=== PATIENT | female | born 1950 | race Caucasian/White ===

== ENCOUNTER 2024-04-29 02:49 | Observation (INO) ==
--- NOTE | 2024-04-29 03:10 | Emergency Department Note ---
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 Pt. states she has lower abdominal pain. No diarrhea or constipation. LBM was about 2pm and normal. She did have similar symptoms about a month ago which lasted only a short time and resolved on their own. No dysuria, urinary frequency, urinary hesitancy, hematuria. No chest pain or dyspnea. No fever. She has had some chills. No blood in the vomit. History provided by: Patient REVIEW OF SYSTEMS: A 10 system review of systems was performed with positives and pertinent negatives listed in the history of present illness. All other systems were reviewed and are negative. ALLERGIES: NKDA PHYSICAL EXAM: VITALS: Vitals are noted on the nurse's note and reviewed by myself. GENERAL: This is a 74 year old female, in no acute distress, nondiaphoretic, well-developed well-nourished. SKIN: The skin was without rashes, erythema, edema, or bruising. There is no tenting of the skin. Capillary refill less than 2 seconds. HEAD: Normocephalic atraumatic. EARS: External auditory canals clear, tympanic membranes pearly herbert without erythema or effusion bilaterally. No hemotympanum. Negative montez sign EYES: Pupils equal round and reactive to light and accommodation. Conjunctivae without injection, sclerae without icterus. Extraocular movements intact. NOSE: Patent, turbinates without inflammation or discharge. No sinus tenderness. MOUTH: Mucous membranes moist. Tonsils are not enlarged. Pharynx without erythema or exudate. Uvula midline. Airway patent. Tongue does not deviate. NECK: Supple without nuchal rigidity. No lymphadenopathy. Cervical spine is nontender. No JVD. HEART: Regular rate and rhythm without murmurs gallops or rubs. LUNGS: Clear to auscultation bilaterally without wheezes, rales or rhonchi. No retractions or accessory muscle use. ABDOMEN: Positive bowel sounds x 4. Suprapubic tenderness to palpation. Abdomen otherwise soft, nontender, without masses or organomegaly. Kat sign negative. No guarding or rebound tenderness. No CVA tenderness bilaterally. MUSCULOSKELETAL: No muscle atrophy, erythema, or edema noted. Full range of motion without joint tenderness in all extremities. No tenderness to palpation. Normal gait. Strength 5/5 throughout. NEURO: Patient was alert and oriented to person place and time. No focal neurological deficits. An order was placed for continuous quality assurance monitor body. The monitor showed a normal sinus rhythm at a ventricular rate of 93 bpm, per my interpretation. Imaging as interpreted by myself and the radiologist revealed findings consistent with small bowel obstruction, with radiologist interpretation as above. I agree with the radiologist's findings as based upon my independent interpretation. EMERGENCY DEPARTMENT COURSE: The patient was seen and evaluated as above. The patient presents to the emergency department for abdominal pain, nausea, vomiting. Symptoms began approximately 5 to 6 hours prior to arrival. Patient has had several episodes of vomiting. She complains of lower abdominal pain. No recent diarrhea or constipation. Last bowel movement was about 2 PM. Patient is afebrile. No history of similar symptoms. No history of GI abnormalities. IV access was obtained, labs are drawn. Patient hydrated with IV fluids. She was medicated with Zofran and acetaminophen. Labs reviewed. Mild leukocytosis of 14,000. No anemia or thrombocytopenia. Renal, hepatic function and electrolytes without significant abnormality. Lipase 18. Urinalysis negative for blood. Is positive for 2+ bacteria, 2+ leukocyte esterase, but does appear to be contaminated specimen. CT imaging was completed and reviewed by myself radiologist as noted. Radiologist report initially read and somewhat unclear. Did contact Dr. Solis regarding concern for bowel obstruction. He notes that the findings on the imaging are consistent with small bowel obstruction. I discussed findings with the patient at bedside. She was reassessed. She does improvement in her pain and nausea. She has not had any further episodes of vomiting. I did recommend inpatient care, as the patient does not have any history of small bowel obstructions. The patient was agreeable. I discussed the case with Dr. Evans, Sariah Bailey hospitalist physician. She did agree to evaluate patient for admission. Please see hospitalist dictation regarding ongoing management and care of this patient. Case was discussed with the attending physician. I attest that I have personally reviewed the patient medication list. I attest that I have reviewed the patient's blood pressure and it was found to be elevated. Suspect to be situational. Referred to PCP for further management. GCS: 15 In the evaluation and treatment of this patient the following differential diagnoses were entertained: appendicitis, diverticulitis, obstruction, inflammatory bowel disease, renal colic, PUD, biliary pathology, pancreatitis, mesenteric ischemia, aortic pathology, infections, genitourinary, UTI, perforated viscus, as well as others were entertained. The chart was completed utilizing [employer] Speech voice recognition software. Grammatical errors, random word insertions, pronoun errors, and incomplete sentences are an occasional consequence of this system due to software limitations, ambient noise, and hardware issues. Any formal questions or concerns about the content, text, or information contained within the body of this dictation should be directly addressed to the provider for clarification. Past Med/Surg History Problem List (Updated 04/29/24 @ 07:23 by Rachel Montiel PA-C) Nausea & vomiting (Acute) Abdominal pain (Acute) Small bowel obstruction (Acute) COVID-19 History of squamous cell carcinoma of skin Vitamin D deficiency Medical History Cystocele Hypertension Allergic rhinitis Asthma Surgical History H/O hysterectomy with unilateral oophorectomy still w/ L ovary; d/t DUB Hx of cholecystectomy Family History Father Myocardial infarction, Onset Age: 72 Coronary heart disease Diabetes Mother No problems noted. 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 Beliefs That Will Affect Care: None marital status: / marital status details: lost spouse (2019) Current Living Situation: Alone current occupational status: retired How many Children do You have: 3 Feels Safe at Home: Yes Childhood Exposure to Second-Hand Smoke: Yes Diet: regular Diet Comment: Regular caffeine: Yes (coffee) during the past year weight has: remained stable Dental Care, Regularly: Yes Physical Activity Frequency: Daily Seatbelt Use: always Sunscreen Use: No Assistive Devices: Glasses Allergies Allergies Allergy/AdvReac Type Severity Reaction Status Date / Time No Known Drug Allergies Allergy Unknown Unverified 12/20/23 15:07 weed pollen AdvReac Unknown Verified 12/20/23 15:07 Home Meds Home Medications Medication Instructions Recorded Confirmed fexofenadine 180 mg tablet 180 mg PO DAILY 02/18/22 04/29/24 multivitamin 1 tab PO QAM 12/03/22 04/29/24 cholecalciferol (vitamin D3) 50 6,000 unit PO DAILY 06/07/23 04/29/24 mcg (2,000 unit) capsule clobetasol 0.05 % scalp solution 1 applic topical DAILY PRN Rash 12/16/23 04/29/24 ketoconazole 2 % shampoo 1 applic topical .2 times per week 12/16/23 04/29/24 PRN Rash fluocinolone acetonide oil 0.01 % drp otic (ear) 12/20/23 12/20/23 ear drops Previous Rx's Medication Instructions Recorded fluticasone 250 mcg-salmeterol 50 1 inh inhalation BID #60 ea 04/28/23 mcg/dose blistr powdr for inhalation (Wixela Inhub) amlodipine 5 mg tablet 5 mg PO DAILY #90 tabs 10/25/23 amoxicillin 875 mg-potassium 1 tab PO BID 10 days #20 tabs 12/16/23 clavulanate 125 mg tablet Results & Data (ED) Vital Signs Vital Signs - 24 hr 04/29/24 02:53 04/29/24 03:44 04/29/24 03:45 Temperature 36.7 C Temperature Source Temporal Artery Scan Pulse Rate 93 H 78 79 Pulse Rate [Apical] Pulse Rate from SpO2 Sensor 79 Respiratory Rate 18 14 Respiratory Effort / Characteristics Non-Labored Respiratory Depth Normal Respiratory Pattern Regular Blood Pressure 168/96 H 137/75 Blood Pressure [Right Arm] Blood Pressure Mean 120 95 Blood Pressure Mean [Right Arm] Pulse Oximetry 97 90 Oxygen Delivery Method Room Air Sepsis Recent Fever Within 48 Hours No Sepsis New/Unexplained Change in Mental Status N/A Sepsis Action Taken by Nursing No Action Required 04/29/24 04:30 04/29/24 05:24 04/29/24 06:00 Temperature Temperature Source Pulse Rate 69 67 72 Pulse Rate [Apical] Pulse Rate from SpO2 Sensor 63 69 Respiratory Rate 15 15 16 Respiratory Effort / Characteristics Respiratory Depth Respiratory Pattern Blood Pressure 135/73 142/79 H 143/78 H Blood Pressure [Right Arm] Blood Pressure Mean 93 100 97 Blood Pressure Mean [Right Arm] Pulse Oximetry 98 98 97 Oxygen Delivery Method Sepsis Recent Fever Within 48 Hours Sepsis New/Unexplained Change in Mental Status Sepsis Action Taken by Nursing 04/29/24 07:06 Temperature Temperature Source Pulse Rate Pulse Rate [Apical] 80 Pulse Rate from SpO2 Sensor Respiratory Rate 16 Respiratory Effort / Characteristics Respiratory Depth Normal Respiratory Pattern Blood Pressure Blood Pressure [Right Arm] 141/82 H Blood Pressure Mean Blood Pressure Mean [Right Arm] 101 Pulse Oximetry 99 Oxygen Delivery Method Room Air Sepsis Recent Fever Within 48 Hours Sepsis New/Unexplained Change in Mental Status Sepsis Action Taken by Nursing Laboratory Data 04/29/24 03:08 04/29/24 03:08 Lab Results 04/29/24 04/29/24 Range/Units 03:08 03:23 WBC 14.31 H (4.8-10.8) K/ul RBC 5.37 (4.20-5.40) M/uL Hgb 14.5 (12.0-16.0) g/dl POC Hgb 15.0 (12.0-16.0) g/dl Hct 44.1 (37.0-47.0) % POC Hct 44 (37-47) % MCV 82.1 (80.0-100.0) fL MCH 27.0 (25.0-34.0) pg MCHC 32.9 (32.0-36.0) g/dL RDW Std Deviation 42.3 (36.4-46.3) fL RDW Coeff of Lorene 14.3 (11.5-14.5) % Plt Count 424 H (130-400) K/uL MPV 10.5 (9.4-12.4) fL Immature Gran % (Auto) 0.3 % Neut % (Auto) 82.9 % Lymph % (Auto) 12.5 % Upson % (Auto) 3.7 % Eos % (Auto) 0.1 % Baso % (Auto) 0.5 % Neut # (Auto) 11.87 H (1.40-6.50) K/uL Lymph # (Auto) 1.79 (1.20-3.40) K/uL Upson # (Auto) 0.53 (0.11-0.59) K/uL Eos # (Auto) 0.01 (0.00-0.50) K/uL Baso # (Auto) 0.07 (0.00-0.20) K/uL Immature Gran # (Auto) 0.04 (0.01-0.20) K/uL PT 11.1 (9.0-12.0) Seconds INR 1.0 (0.9-1.1) POC Sodium 139 (135-144) mmol/L Sodium 136 (136-145) mmol/L POC Potassium 3.8 (3.3-5.0) mmol/L Potassium 3.9 (3.5-5.1) mmol/L POC Chloride 104 (101-112) mmol/L Chloride 103 (98-107) mmol/L Carbon Dioxide 23 (21-32) mmol/L POC Total CO2 23 L (24-31) mmol/L Anion Gap 10 (3-11) POC Anion Gap 17.0 (16-25) mmol/L POC BUN 17 (7-18) mg/dl BUN 17 (6-23) mg/dl Creatinine 0.68 (0.6-1.2) mg/dl POC Creatinine 0.7 (0.6-1.3) mg/dl Est Cr Clr Drug Dosing 85.3 ml/min eGFR 92.48 BUN/Creatinine Ratio 25.0 H (10-20) Glucose 165 H (70-99(Fasting)) mg/dl POC Glucose (other) 169 H (70-99) mg/dl Calcium 10.1 (8.6-10.3) mg/dl POC Ioniz Calcium Amisha 1.13 (1.12-1.32) mmol/l Total Bilirubin 0.7 (0.2-1.0) mg/dl AST 20 (13-39) U/L ALT 14 (7-52) U/L Alkaline Phosphatase 97 (34-104) U/L Troponin I High Sens 4.8 (0-14) pg/ml Total Protein 8.1 (6.0-8.3) gm/dl Albumin 4.8 (3.4-5.0) gm/dl Globulin 3.3 (2.5-4.0) gm/dl Albumin/Globulin Ratio 1.5 (0.9-2) Lipase 18 (11-82) U/L Urine Color Yellow Urine Appearance Cloudy A (Clear) Urine pH 7.5 (4.5-7.5) Ur Specific [place] 1.021 (1.000-1.030) Urine Protein Trace H (Negative) Urine Glucose (UA) Negative (Negative) Urine Ketones 1+ H (Negative) Urine Blood Negative (Negative) Urine Nitrite Negative (Negative) Urine Bilirubin Negative (Negative) Urine Urobilinogen Negative (Negative) Ur Leukocyte Esterase 2+ H (Negative) Urine WBC (Auto) 11-20 H (0-5) /hpf Urine RBC (Auto) 0-2 (0-2) /hpf U Hyaline Cast (Auto) 0-2 (0-2) /lpf U Epithel Cells (Auto) 11-20 H (0-2) /hpf Urine Bacteria (Auto) 2+ H (None Seen) Administered Medications Discontinued Medications Sodium Chloride (Nss) 1,000 mls @ 999 mls/hr IV .Q1H1M STA Stop: 04/29/24 04:06 Last Infusion: 04/29/24 04:22 Dose: Infused Documented By: Admin: 04/29/24 03:21 Dose: 999 mls/hr Documented By: SRINIVAS Acetaminophen (Ofirmev) 1,000 mg in 100 mls @ 400 mls/hr IV NOW STA Stop: 04/29/24 03:20 Last Infusion: 04/29/24 03:44 Dose: Infused Documented By: Admin: 04/29/24 03:21 Dose: 400 mls/hr Documented By: SRINIVAS Ioversol (Optiray 320 100ml) 94 ml IV ONCE ONE Stop: 04/29/24 03:42 Last Admin: 04/29/24 03:32 Dose: 94 ml Documented By: BRETT Ondansetron HCl (Ondansetron Inj 2 Mg/Ml 2 Ml Vial) 4 mg IV NOW STA Stop: 04/29/24 03:07 Last Admin: 04/29/24 03:21 Dose: 4 mg Documented By: SRINIVAS Ondansetron HCl (Ondansetron Inj 2 Mg/Ml 2 Ml Vial) 4 mg IV NOW STA Stop: 04/29/24 05:59 Last Admin: 04/29/24 06:05 Dose: 4 mg Documented By: SRINIVAS Imaging Data Radiologist's Impression: Abdomen/Pelvis CT 04/29/24 03:06 EXAM: CT abd pelvis IV con only CLINICAL HISTORY: lower abd pain , nausea , vomiting , TECHNIQUE: CT of the abdomen and pelvis was performed with contrast, with the following protocol: axial images with, and reconstructed coronal and sagittal images. 94 ml optiray 320 intravenous contrast was administered. One of the following dose reduction techniques was utilized for this exam: Automated exposure control, adjustment of the mA and/or kV according to patient size, and use of iterative reconstruction. DLP 1379.38 COMPARISON: NONE. FINDINGS: Abdomen: Liver: Normal in size, shape, and density. No focal lesions, cysts, or masses were identified. Gallbladder and Biliary System: The gallbladder is surgically removed. The intrahepatic biliary ducts are moderately dilated, the CBD also dilated measures 1.3cm, and no intraluminal calcification or mass was noted. Pancreas: Pancreatic head, body, and tail are visualized and appear normal in size and density. No pancreatic masses or calcifications were noted. The pancreatic duct is not dilated. Spleen: Normal in size, shape, and density. No splenic lesions or masses were identified. Kidneys and Adrenal Glands: Both kidneys are normal in size, shape, and position. Cortical thickness is within normal limits. No renal calculi or hydronephrosis. Adrenal glands are unremarkable with no evidence of masses or hyperplasia. Pelvis: Urinary Bladder: Normal in contour and wall thickness. No intraluminal lesions were identified. Uterus: Status of post hysterectomy. Ovaries: Not-well visualized but no gross abnormalities were noted. Cervix: There is a circular prosthesis around it. Peritoneal and Retroperitoneal Structures: Mild trace of free fluid in the pelvis. No lymphadenopathy was noted. Bowel: Dilation of continuous loops of the central small bowels with kinking of the mesenteric vessels, there is a transitional point in distal ileium where it showed enhancing wall thickening and luminal narrowing as well as engorged mesneteric vessels(comb sign) and few mesenteric adenitides, could be inflammatory bowel disease, likely active Crhons, clinical correlation and follow UP are needed. Multiple uncomplicated left colon diverticulosis was noted. Bones and Soft Tissues: Pelvic bones and soft tissues are unremarkable. No fractures or abnormal masses were identified. IMPRESSION: 1. Dilation of continuous loops of the central small bowels with kinking of the mesenteric vessels, there is a transitional point in distal ileium where it showed enhancing wall thickening and luminal narrowing as well as engorged mesneteric vessels(comb sign) and few mesenteric adenitides, could be inflammatory bowel disease, likely active Crhons, clinical correlation and follow UP are needed. 2. Multiple uncomplicated left colon diverticulosis was noted. 3. The intrahepatic biliary ducts are moderately dilated, the CBD also dilated measures 1.3cm, and no intraluminal calcification or mass was noted. further evaluation with MRCP is suggested if clinically warranted. 4. Status of post cholecystectomy and hysterectomy. Electronically signed by Johny Solis 04-29-2024 05:08 AM Discharge Plan Visit Data Chief Complaint: Abdominal Pain Stated Complaint: abd pain, vomiting ED Provider: José Miguel Fernandez ED Midlevel Provider: Rachel Montiel Discharge Problem: Small bowel obstruction, Abdominal pain, Nausea & vomiting Patient Disposition: Admitted As Inpatient Forms Stand Alone Forms: [facility], Important Visit Information Prescriptions Prescriptions: No Action fluticasone propion-salmeterol [Wixela Inhub] 250-50 mcg/dose blister with device 1 inh inhalation BID Qty: 60 5RF amlodipine 5 mg tablet 5 mg PO DAILY Qty: 90 3RF multivitamin Tablet 1 tab PO QAM Rx Instructions: with probiotic (Ollys brand) fexofenadine 180 mg tablet 180 mg PO DAILY Fluzone HighDose Quad 23-24 PF 240 mcg/0.7 mL syringe 0.7 ml IM ONCE Qty: 0.7 0RF cholecalciferol (vitamin D3) 50 mcg (2,000 unit) capsule 6,000 unit PO DAILY clobetasol 0.05 % solution 1 applic topical DAILY PRN (Reason: Rash) ketoconazole 2 % shampoo 1 applic topical .2 times per week PRN (Reason: Rash) fluocinolone acetonide oil 0.01 % drops otic (ear) amoxicillin-pot clavulanate 875-125 mg tablet 1 tab PO BID 10 Days Qty: 20 0RF Referrals Referrals: Cristina Chilel DO [Primary Care Provider] -
[2024-04-29 03:20] LABS: Basophils # (auto) 0.07 K/uL (0.00-0.20); Basophils % (auto) 0.5 %; Eosinophils # (auto) 0.01 K/uL (0.00-0.50); Eosinophils % (auto) 0.1 %; Hematocrit (blood only) 44.1 % (37.0-47.0); Hemoglobin 14.5 g/dl (12.0-16.0); Immature Granulocytes # (auto) 0.04 K/uL (0.01-0.20); Immature Granulocytes % (auto) 0.3 %; Lymphocytes # (auto) 1.79 K/uL (1.20-3.40); Lymphocytes % (auto) 12.5 %; Mean Corpuscular Hgb Conc 32.9 g/dL (32.0-36.0); Mean Corpuscular Volume 82.1 fL (80.0-100.0); Mean Platelet Volume 10.5 fL (9.4-12.4); Monocytes # (auto) 0.53 K/uL (0.11-0.59); Monocytes % (auto) 3.7 %; Neutrophils # (auto) 11.87 K/uL (1.40-6.50); Neutrophils % (auto) 82.9 %; Platelet Count 424 K/uL (130-400); RDW Coefficient of Variation 14.3 % (11.5-14.5); RDW Standard Deviation 42.3 fL (36.4-46.3); Red Blood Count 5.37 M/uL (4.20-5.40); White Blood Count 14.31 K/ul (4.8-10.8)
[2024-04-29] MEDS: ACETAMINOPHEN 1,000 MG/100 ML VIAL IV STA (03:21)
[2024-04-29] MEDS: ONDANSETRON INJ 2 MG/ML 2 ML VIAL IV STA ×2 (03:21→06:05)
[2024-04-29] MEDS: SODIUM CHLORIDE 0.9% 1,000 ML IV STA (03:21)
[2024-04-29 03:24] LABS: Appearance Urine Cloudy (Clear); Bacteria Urine Automated 2+ (None Seen); Bilirubin Urine Negative (Negative); Blood Urine Negative (Negative); Cast Urine Automated 0-2 /lpf (0-2); Color Urine Yellow; Glucose Urine UA Negative (Negative); Ketones Urine 1+ (Negative); Leukocyte Esterase Urine 2+ (Negative); Nitrite Urine Negative (Negative); Protein Urine Trace (Negative); RBC Urine Automated 0-2 /hpf (0-2); Specific Gravity Urine 1.021 (1.000-1.030); Urobilinogen Urine Negative (Negative); pH Urine 7.5 (4.5-7.5)
[2024-04-29] MEDS: OPTIRAY 320 100ml IV ONE (03:32)
[2024-04-29 03:39] LABS: iSTAT Creatinine 0.7 mg/dl (0.6-1.3); iSTAT Ionized Calcium 1.13 mmol/l (1.12-1.32); iSTAT Potassium 3.8 mmol/L (3.3-5.0)
[2024-04-29 03:39] LABS: Albumin Globulin Ratio 1.5 (0.9-2); Albumin Level 4.8 gm/dl (3.4-5.0); Bilirubin,Total 0.7 mg/dl (0.2-1.0); Calcium 10.1 mg/dl (8.6-10.3); Creatinine Clr Calc Pharmacy 85.3 ml/min; Globulin 3.3 gm/dl (2.5-4.0); Potassium 3.9 mmol/L (3.5-5.1); Total Protein 8.1 gm/dl (6.0-8.3)
[2024-04-29 03:46] LABS: Troponin I High Sensitivity 4.8 pg/ml (0-14)
[2024-04-29 04:00] LABS: Prothrombin Time 11.1 Seconds (9.0-12.0)
--- NOTE | 2024-04-29 05:09 | CT Scan Report ---
EXAM: CT abd pelvis IV con only CLINICAL HISTORY: lower abd pain , nausea , vomiting , TECHNIQUE: CT of the abdomen and pelvis was performed with contrast, with the following protocol: axial images with, and reconstructed coronal and sagittal images. 94 ml optiray 320 intravenous contrast was administered. One of the following dose reduction techniques was utilized for this exam: Automated exposure control, adjustment of the mA and/or kV according to patient size, and use of iterative reconstruction. DLP 1379.38 COMPARISON: NONE. FINDINGS: Abdomen: Liver: Normal in size, shape, and density. No focal lesions, cysts, or masses were identified. Gallbladder and Biliary System: The gallbladder is surgically removed. The intrahepatic biliary ducts are moderately dilated, the CBD also dilated measures 1.3cm, and no intraluminal calcification or mass was noted. Pancreas: Pancreatic head, body, and tail are visualized and appear normal in size and density. No pancreatic masses or calcifications were noted. The pancreatic duct is not dilated. Spleen: Normal in size, shape, and density. No splenic lesions or masses were identified. Kidneys and Adrenal Glands: Both kidneys are normal in size, shape, and position. Cortical thickness is within normal limits. No renal calculi or hydronephrosis. Adrenal glands are unremarkable with no evidence of masses or hyperplasia. Pelvis: Urinary Bladder: Normal in contour and wall thickness. No intraluminal lesions were identified. Uterus: Status of post hysterectomy. Ovaries: Not-well visualized but no gross abnormalities were noted. Cervix: There is a circular prosthesis around it. Peritoneal and Retroperitoneal Structures: Mild trace of free fluid in the pelvis. No lymphadenopathy was noted. Bowel: Dilation of continuous loops of the central small bowels with kinking of the mesenteric vessels, there is a transitional point in distal ileium where it showed enhancing wall thickening and luminal narrowing as well as engorged mesneteric vessels(comb sign) and few mesenteric adenitides, could be inflammatory bowel disease, likely active Crhons, clinical correlation and follow UP are needed. Multiple uncomplicated left colon diverticulosis was noted. Bones and Soft Tissues: Pelvic bones and soft tissues are unremarkable. No fractures or abnormal masses were identified. IMPRESSION: 1. Dilation of continuous loops of the central small bowels with kinking of the mesenteric vessels, there is a transitional point in distal ileium where it showed enhancing wall thickening and luminal narrowing as well as engorged mesneteric vessels(comb sign) and few mesenteric adenitides, could be inflammatory bowel disease, likely active Crhons, clinical correlation and follow UP are needed. 2. Multiple uncomplicated left colon diverticulosis was noted. 3. The intrahepatic biliary ducts are moderately dilated, the CBD also dilated measures 1.3cm, and no intraluminal calcification or mass was noted. further evaluation with MRCP is suggested if clinically warranted. 4. Status of post cholecystectomy and hysterectomy. Electronically signed by Johny Solis 04-29-2024 05:08 AM
--- NOTE | 2024-04-29 05:16 | Emergency Department Note ---
ED Visit Note I was consulted by the Advanced Practice Provider. I personally made or approved the management plan for the patient. I performed a substantive portion of the visit. This includes the aspects of: MDM. .
--- NOTE | 2024-04-29 05:59 | History & Physical Report ---
Date of Service April 29, 2024 Assessment & Plan (1) Small bowel obstruction: Plan: 74-year-old female with history of cholecystectomy and hysterectomy presenting with 1 day of severe lower abdominal pain, nausea and multiple episodes of nonbloody/nonbilious vomiting. Patient afebrile, hemodynamically stable. Does have leukocytosis with WBC = 14.31 and elevated platelets = 424. CT as above with suggestion of small bowel obstruction. Patient feels slightly improved after receiving IV Zofran. No flatus. nausea is somewhat improved as is pain. Will hold off on NG tube placement for now Admit to medical Maintain n.p.o. status and aspiration precautions Normal saline at 80 mL/h Zofran as needed for nausea Morphine as needed for pain General Surgery consultation appreciated (2) Hypertension: Plan: chronic. Stable. Blood pressure acceptable presently 137/75 Continue amlodipine 5 mg p.o. daily Continue to monitor Plan Chronic medical conditions Asthmastable, no cough, shortness of breath or wheeze Continue Advair or formulary equivalent F/E/N - Normal saline at 80 mL an hour x 2L, electrolytes within normal limits, n.p.o. for now ProphylaxisSCDs to bilateral lower extremities codefull per discussion with patient Dispositionadmit to medical floor management for small bowel obstruction History of Present Illness Chief Complaint: abdominal pain Primary Care Provider: Cristina Chilel DO Florence Marilee is a 74yo female with HTN and Asthma presenting with abdominal pain. Patient developed fairly severe lower abdominal pain approximately 6 h ours ago. She has been having nausea and non-bloody/non-bilious vomiting as well. Some abdominal distention. Patient also endorses some subjective fevers and chills but denies chest pain, cough, SOB, diarrhea or urinary symptoms. Last BM yesterday - two normal BMs. No flatus now. In the ER she is afebrile, HD stable, NAD ER Course: Zofran Tylenol Normal saline x 1 L Allergies Allergy/AdvReac Type Severity Reaction Status Date / Time No Known Drug Allergies Allergy Unknown Unverified 12/20/23 15:07 weed pollen AdvReac Unknown Verified 12/20/23 15:07 Home Medications Medication Instructions Recorded Confirmed Type fexofenadine 180 mg tablet 180 mg PO DAILY 02/18/22 04/29/24 History multivitamin 1 tab PO QAM 12/03/22 04/29/24 History fluticasone 250 mcg-salmeterol 50 1 inh inhalation BID #60 ea 04/28/23 04/29/24 Rx mcg/dose blistr powdr for inhalation (Wixela Inhub) cholecalciferol (vitamin D3) 50 6,000 unit PO DAILY 06/07/23 04/29/24 History mcg (2,000 unit) capsule amlodipine 5 mg tablet 5 mg PO DAILY #90 tabs 10/25/23 04/29/24 Rx amoxicillin 875 mg-potassium 1 tab PO BID 10 days #20 tabs 12/16/23 12/16/23 Rx clavulanate 125 mg tablet clobetasol 0.05 % scalp solution 1 applic topical DAILY PRN Rash 12/16/23 04/29/24 History ketoconazole 2 % shampoo 1 applic topical .2 times per week 12/16/23 04/29/24 History PRN Rash fluocinolone acetonide oil 0.01 % drp otic (ear) 12/20/23 12/20/23 History ear drops Past Med/Surg History Problem List (Updated 04/29/24 @ 06:14 by Kaylene Evans DO) Small bowel obstruction COVID-19 History of squamous cell carcinoma of skin Vitamin D deficiency Medical History Cystocele Hypertension Allergic rhinitis Asthma Surgical History H/O hysterectomy with unilateral oophorectomy still w/ L ovary; d/t DUB Hx of cholecystectomy Family History Father Myocardial infarction, Onset Age: 72 Coronary heart disease Diabetes Mother No problems noted. Denies family history of Ovarian cancer Prostate cancer Breast cancer Colorectal cancer Social History Smoking Status: Never smoker Second Hand Exposure: Yes; Do You Dip or Chew Tobacco: No; Hx Alcohol Use: No Hx Substance Use: No Preferred Language: Bermudian Communication Ability: Effective Visual Impairment: No Limitations Hearing Ability: Normal Mail Officer Required: No Beliefs That Will Affect Care: None marital status: / marital status details: lost spouse (2019) Current Living Situation: Alone current occupational status: retired How many Children do You have: 3 Feels Safe at Home: Yes Childhood Exposure to Second-Hand Smoke: Yes Diet: regular Diet Comment: Regular caffeine: Yes (coffee) during the past year weight has: remained stable Dental Care, Regularly: Yes Physical Activity Frequency: Daily Seatbelt Use: always Sunscreen Use: No Assistive Devices: Glasses Review of Systems Review of Systems: All systems reviewed & are unremarkable except as noted in HPI & below Physical Exam Physical Exam: General: patient Anxious in appearance, no acute distress Skin: warm, dry, intact, no rashes or lesions HEENT: NC/AT, PERRL, EOMI, anicteric sclera, conjunctiva without injection, external ear normal to inspection and nontender, nares patent, moist mucus membranes, dentition intact, no oropharyngeal lesions, neck supple, trachea midline, no LAD, no thyromegaly, no JVD Heart: +S1/S2, regular, no m/r/g Lungs: equal air entry bilaterally, no rales/rhonchi/wheezes Abd: Diminished bowel sounds, abdomen mildly distended, tympanic to percussion, tender in the lower abdomen without rebound/guarding or peritoneal signs. No upper abdominal pain. No right upper quadrant tenderness. Ext: warm, 2+ pulses in UE/LE bilaterally, no clubbing/cyanosis or edema Neuro: nonfocal, patient AA&O x 4, speech intact, no facial droop, moving all extremities on command with equal strength 5/5 Results & Data Results & Data Vital Signs (Past 12 Hours) Vital Signs Temp Pulse Resp BP Pulse Ox O2 Del Method 04/29/24 03:45 79 14 137/75 90 04/29/24 03:44 78 04/29/24 02:53 36.7 C 93 H 18 168/96 H 97 Room Air Laboratory Results Laboratory Results WBC 14.31 K/ul (4.8-10.8) H 04/29/24 03:08 RBC 5.37 M/uL (4.20-5.40) 04/29/24 03:08 Hgb 14.5 g/dl (12.0-16.0) 04/29/24 03:08 POC Hgb 15.0 g/dl (12.0-16.0) 04/29/24 03:23 Hct 44.1 % (37.0-47.0) 04/29/24 03:08 POC Hct 44 % (37-47) 04/29/24 03:23 MCV 82.1 fL (80.0-100.0) 04/29/24 03:08 MCH 27.0 pg (25.0-34.0) 04/29/24 03:08 MCHC 32.9 g/dL (32.0-36.0) 04/29/24 03:08 RDW Std Deviation 42.3 fL (36.4-46.3) 04/29/24 03:08 RDW Coeff of Lorene 14.3 % (11.5-14.5) 04/29/24 03:08 Plt Count 424 K/uL (130-400) H 04/29/24 03:08 MPV 10.5 fL (9.4-12.4) 04/29/24 03:08 Immature Gran % (Auto) 0.3 % 04/29/24 03:08 Neut % (Auto) 82.9 % 04/29/24 03:08 Lymph % (Auto) 12.5 % 04/29/24 03:08 Moore % (Auto) 3.7 % 04/29/24 03:08 Eos % (Auto) 0.1 % 04/29/24 03:08 Baso % (Auto) 0.5 % 04/29/24 03:08 Neut # (Auto) 11.87 K/uL (1.40-6.50) H 04/29/24 03:08 Lymph # (Auto) 1.79 K/uL (1.20-3.40) 04/29/24 03:08 Moore # (Auto) 0.53 K/uL (0.11-0.59) 04/29/24 03:08 Eos # (Auto) 0.01 K/uL (0.00-0.50) 04/29/24 03:08 Baso # (Auto) 0.07 K/uL (0.00-0.20) 04/29/24 03:08 Immature Gran # (Auto) 0.04 K/uL (0.01-0.20) 04/29/24 03:08 PT 11.1 Seconds (9.0-12.0) 04/29/24 03:08 INR 1.0 (0.9-1.1) 04/29/24 03:08 POC Sodium 139 mmol/L (135-144) 04/29/24 03:23 Sodium 136 mmol/L (136-145) 04/29/24 03:08 POC Potassium 3.8 mmol/L (3.3-5.0) 04/29/24 03:23 Potassium 3.9 mmol/L (3.5-5.1) 04/29/24 03:08 POC Chloride 104 mmol/L (101-112) 04/29/24 03:23 Chloride 103 mmol/L (98-107) 04/29/24 03:08 Carbon Dioxide 23 mmol/L (21-32) 04/29/24 03:08 POC Total CO2 23 mmol/L (24-31) L 04/29/24 03:23 Anion Gap 10 (3-11) 04/29/24 03:08 POC Anion Gap 17.0 mmol/L (16-25) 04/29/24 03:23 POC BUN 17 mg/dl (7-18) 04/29/24 03:23 BUN 17 mg/dl (6-23) 04/29/24 03:08 Creatinine 0.68 mg/dl (0.6-1.2) 04/29/24 03:08 POC Creatinine 0.7 mg/dl (0.6-1.3) 04/29/24 03:23 Est Cr Clr Drug Dosing 85.3 ml/min 04/29/24 03:08 eGFR 92.48 04/29/24 03:08 BUN/Creatinine Ratio 25.0 (10-20) H 04/29/24 03:08 Glucose 165 mg/dl (70-99(Fasting)) H 04/29/24 03:08 POC Glucose (other) 169 mg/dl (70-99) H 04/29/24 03:23 Calcium 10.1 mg/dl (8.6-10.3) 04/29/24 03:08 POC Ioniz Calcium Amisha 1.13 mmol/l (1.12-1.32) 04/29/24 03:23 Total Bilirubin 0.7 mg/dl (0.2-1.0) 04/29/24 03:08 AST 20 U/L (13-39) 04/29/24 03:08 ALT 14 U/L (7-52) 04/29/24 03:08 Alkaline Phosphatase 97 U/L (34-104) 04/29/24 03:08 Troponin I High Sens 4.8 pg/ml (0-14) 04/29/24 03:08 Total Protein 8.1 gm/dl (6.0-8.3) 04/29/24 03:08 Albumin 4.8 gm/dl (3.4-5.0) 04/29/24 03:08 Globulin 3.3 gm/dl (2.5-4.0) 04/29/24 03:08 Albumin/Globulin Ratio 1.5 (0.9-2) 04/29/24 03:08 Lipase 18 U/L (11-82) 04/29/24 03:08 Urine Color Yellow 04/29/24 03:08 Urine Appearance Cloudy (Clear) A 04/29/24 03:08 Urine pH 7.5 (4.5-7.5) 04/29/24 03:08 Ur Specific [place] 1.021 (1.000-1.030) 04/29/24 03:08 Urine Protein Trace (Negative) H 04/29/24 03:08 Urine Glucose (UA) Negative (Negative) 04/29/24 03:08 Urine Ketones 1+ (Negative) H 04/29/24 03:08 Urine Blood Negative (Negative) 04/29/24 03:08 Urine Nitrite Negative (Negative) 04/29/24 03:08 Urine Bilirubin Negative (Negative) 04/29/24 03:08 Urine Urobilinogen Negative (Negative) 04/29/24 03:08 Ur Leukocyte Esterase 2+ (Negative) H 04/29/24 03:08 Urine WBC (Auto) 11-20 /hpf (0-5) H 04/29/24 03:08 Urine RBC (Auto) 0-2 /hpf (0-2) 04/29/24 03:08 U Hyaline Cast (Auto) 0-2 /lpf (0-2) 04/29/24 03:08 U Epithel Cells (Auto) 11-20 /hpf (0-2) H 04/29/24 03:08 Urine Bacteria (Auto) 2+ (None Seen) H 04/29/24 03:08 Impressions Abdomen/Pelvis CT 04/29/24 03:06 EXAM: CT abd pelvis IV con only CLINICAL HISTORY: lower abd pain , nausea , vomiting , TECHNIQUE: CT of the abdomen and pelvis was performed with contrast, with the following protocol: axial images with, and reconstructed coronal and sagittal images. 94 ml optiray 320 intravenous contrast was administered. One of the following dose reduction techniques was utilized for this exam: Automated exposure control, adjustment of the mA and/or kV according to patient size, and use of iterative reconstruction. DLP 1379.38 COMPARISON: NONE. FINDINGS: Abdomen: Liver: Normal in size, shape, and density. No focal lesions, cysts, or masses were identified. Gallbladder and Biliary System: The gallbladder is surgically removed. The intrahepatic biliary ducts are moderately dilated, the CBD also dilated measures 1.3cm, and no intraluminal calcification or mass was noted. Pancreas: Pancreatic head, body, and tail are visualized and appear normal in size and density. No pancreatic masses or calcifications were noted. The pancreatic duct is not dilated. Spleen: Normal in size, shape, and density. No splenic lesions or masses were identified. Kidneys and Adrenal Glands: Both kidneys are normal in size, shape, and position. Cortical thickness is within normal limits. No renal calculi or hydronephrosis. Adrenal glands are unremarkable with no evidence of masses or hyperplasia. Pelvis: Urinary Bladder: Normal in contour and wall thickness. No intraluminal lesions were identified. Uterus: Status of post hysterectomy. Ovaries: Not-well visualized but no gross abnormalities were noted. Cervix: There is a circular prosthesis around it. Peritoneal and Retroperitoneal Structures: Mild trace of free fluid in the pelvis. No lymphadenopathy was noted. Bowel: Dilation of continuous loops of the central small bowels with kinking of the mesenteric vessels, there is a transitional point in distal ileium where it showed enhancing wall thickening and luminal narrowing as well as engorged mesneteric vessels(comb sign) and few mesenteric adenitides, could be inflammatory bowel disease, likely active Crhons, clinical correlation and follow UP are needed. Multiple uncomplicated left colon diverticulosis was noted. Bones and Soft Tissues: Pelvic bones and soft tissues are unremarkable. No fractures or abnormal masses were identified. IMPRESSION: 1. Dilation of continuous loops of the central small bowels with kinking of the mesenteric vessels, there is a transitional point in distal ileium where it showed enhancing wall thickening and luminal narrowing as well as engorged mesneteric vessels(comb sign) and few mesenteric adenitides, could be inflammatory bowel disease, likely active Crhons, clinical correlation and follow UP are needed. 2. Multiple uncomplicated left colon diverticulosis was noted. 3. The intrahepatic biliary ducts are moderately dilated, the CBD also dilated measures 1.3cm, and no intraluminal calcification or mass was noted. further evaluation with MRCP is suggested if clinically warranted. 4. Status of post cholecystectomy and hysterectomy. Electronically signed by Johny Solis 04-29-2024 05:08 AM PG Care Time/CCT Total # of Minutes Spent Total Time Spent with Patient: Total time spent is greater than 50% in coordination of care (as documented) at patient's floor/unit and/or counseling patient: Coding Level of Care Code 41858 INT INP/OBS CARE 2/MIN Diagnoses Small bowel obstruction K56.609 Hypertension I10
--- NOTE | 2024-04-29 08:05 | Communication Note ---
Date of Service: April 29, 2024 SBO - transition point in distal ileum with associated inflammation Vomiting despite two doses of zofran -compazine prn -KUB -insert NG tube -positive UA, query whether any UTI symptoms, follow up culture
[2024-04-29] MEDS: LIDOCAINE VISCOUS 2% 15 ML UDC ONE (08:19)
[2024-04-29] MEDS: PROCHLORPERAZINE 5 MG in SYRINGE 4 ML IV PRN (08:19)
[2024-04-29] MEDS: LIDOCAINE 2% JELLY 5 ML TUBE EXT ONE (08:45)
[2024-04-29] MEDS ORDERED: SODIUM CHLORIDE 0.9% 1,000 ML IV SCH (09:27)
[2024-04-29] MEDS ORDERED: ACETAMINOPHEN 325 MG TAB PO PRN (09:27)
[2024-04-29] MEDS ORDERED: MoRPHine SULFATE 2 MG/ML CARP IV PRN (09:27)
[2024-04-29] MEDS ORDERED: MoRPHine SULFATE 4 MG/ML 1 ML CARP\\VIAL IV PRN (09:27)
[2024-04-29] MEDS ORDERED: ONDANSETRON INJ 2 MG/ML 2 ML VIAL IV PRN (09:27)
--- NOTE | 2024-04-29 09:29 | Surgery Consultation ---
Date of Consultation April 29, 2024 Assessment & Plan (1) Small bowel obstruction: Partial small bowel obstruction, may be secondary to adhesions, but appearance on CT and family member with Crohn's raises the concern for inflammatory bowel disease. Continue NG tube, nonoperative management recommend GI consultation Surgery will continue to follow, call with questions or concerns (2) H/O hysterectomy with unilateral oophorectomy: (3) Hx of cholecystectomy: (4) Nausea & vomiting: (5) Abdominal pain: History of Present Illness Attending Physician: Kaylene Evans DO History of Present Illness Consulted for SBO. Presented with abdominal pain that started yesterday evening and has worsened. Multiple episodes of emesis. She had a similar episode this about a month ago. She had a normal bowel movement yesterday around 2 in the afternoon. She has had a prior hysterectomy, sling, and cholecystectomy. She denies any personal history of Crohn's disease, however she does have a daughter with Crohn's disease. She feels better having the NG tube in, less bloated, less abdominal pain. Not on any blood thinners Allergies Allergy/AdvReac Type Severity Reaction Status Date / Time No Known Drug Allergies Allergy Unknown Unverified 12/20/23 15:07 weed pollen AdvReac Unknown Verified 12/20/23 15:07 Home Medications Medication Instructions Recorded Confirmed Type fexofenadine 180 mg tablet 180 mg PO DAILY 02/18/22 04/29/24 History multivitamin 1 tab PO QAM 12/03/22 04/29/24 History fluticasone 250 mcg-salmeterol 50 1 inh inhalation BID #60 ea 04/28/23 04/29/24 Rx mcg/dose blistr powdr for inhalation (Wixela Inhub) cholecalciferol (vitamin D3) 50 6,000 unit PO DAILY 06/07/23 04/29/24 History mcg (2,000 unit) capsule amlodipine 5 mg tablet 5 mg PO DAILY #90 tabs 10/25/23 04/29/24 Rx amoxicillin 875 mg-potassium 1 tab PO BID 10 days #20 tabs 12/16/23 12/16/23 Rx clavulanate 125 mg tablet clobetasol 0.05 % scalp solution 1 applic topical DAILY PRN Rash 12/16/23 04/29/24 History ketoconazole 2 % shampoo 1 applic topical .2 times per week 12/16/23 04/29/24 History PRN Rash fluocinolone acetonide oil 0.01 % drp otic (ear) 12/20/23 12/20/23 History ear drops Patient History Medical History Cystocele Hypertension Allergic rhinitis Asthma Surgical History H/O hysterectomy with unilateral oophorectomy still w/ L ovary; d/t DUB Hx of cholecystectomy Family History Father Myocardial infarction, Onset Age: 72 Coronary heart disease Diabetes Mother No problems noted. Denies family history of Ovarian cancer Prostate cancer Breast cancer Colorectal cancer Social History Smoking Status: Never smoker Second Hand Exposure: Yes; Do You Dip or Chew Tobacco: No; Hx Alcohol Use: No Hx Substance Use: No Preferred Language: Belarusian Communication Ability: Effective Visual Impairment: No Limitations Hearing Ability: Normal Electrical Worker Required: No Beliefs That Will Affect Care: None marital status: / marital status details: lost spouse (2019) Current Living Situation: Alone current occupational status: retired How many Children do You have: 3 Feels Safe at Home: Yes Childhood Exposure to Second-Hand Smoke: Yes Diet: regular Diet Comment: Regular caffeine: Yes (coffee) during the past year weight has: remained stable Dental Care, Regularly: Yes Physical Activity Frequency: Daily Seatbelt Use: always Sunscreen Use: No Assistive Devices: Glasses Review of Systems Review of Systems: All systems reviewed & are unremarkable except as noted in HPI & below Physical Exam Constitutional: WD/WN, vitals as above + obese Respiratory: normal respiratory effort, lungs clear to auscultation Cardiovascular: RRR, no murmur, no edema Gastrointestinal (Abdomen): Inspection/Auscultation: + abdomen distended (Mild distention) and + abdominal surgical scar Percussion/Palpation: + abdomen tender (Minimal diffuse tenderness to palpation) and abdomen soft; no guarding and abdomen not rigid Results & Data Vital Signs (Past 12 Hours) Vital Signs Temp Pulse Pulse Resp BP BP Pulse Ox 04/29/24 08:52 86 18 135/89 98 04/29/24 08:46 80 20 135/89 98 04/29/24 07:06 80 16 141/82 H 99 04/29/24 06:00 72 16 143/78 H 97 04/29/24 05:24 67 15 142/79 H 98 04/29/24 04:30 69 15 135/73 98 04/29/24 03:45 79 14 137/75 90 04/29/24 03:44 78 04/29/24 02:53 36.7 C 93 H 18 168/96 H 97 O2 Del Method O2 Flow Rate 04/29/24 08:52 Oxymask 2 04/29/24 08:46 Oxymask 2 04/29/24 07:06 Room Air 04/29/24 06:00 04/29/24 05:24 04/29/24 04:30 04/29/24 03:45 04/29/24 03:44 04/29/24 02:53 Room Air Laboratory Results Laboratory Results - last 24 hr 04/29/24 04/29/24 03:08 03:23 WBC 14.31 H RBC 5.37 Hgb 14.5 POC Hgb 15.0 Hct 44.1 POC Hct 44 MCV 82.1 MCH 27.0 MCHC 32.9 RDW Std Deviation 42.3 RDW Coeff of Lorene 14.3 Plt Count 424 H MPV 10.5 Immature Gran % (Auto) 0.3 Neut % (Auto) 82.9 Lymph % (Auto) 12.5 Alfalfa % (Auto) 3.7 Eos % (Auto) 0.1 Baso % (Auto) 0.5 Neut # (Auto) 11.87 H Lymph # (Auto) 1.79 [place]falfa # (Auto) 0.53 Eos # (Auto) 0.01 Baso # (Auto) 0.07 Immature Gran # (Auto) 0.04 PT 11.1 INR 1.0 POC Sodium 139 Sodium 136 POC Potassium 3.8 Potassium 3.9 POC Chloride 104 Chloride 103 Carbon Dioxide 23 POC Total CO2 23 L Anion Gap 10 POC Anion Gap 17.0 POC BUN 17 BUN 17 Creatinine 0.68 POC Creatinine 0.7 Est Cr Clr Drug Dosing 85.3 eGFR 92.48 BUN/Creatinine Ratio 25.0 H Glucose 165 H POC Glucose (other) 169 H Calcium 10.1 POC Ioniz Calcium Amisha 1.13 Total Bilirubin 0.7 AST 20 ALT 14 Alkaline Phosphatase 97 Troponin I High Sens 4.8 Total Protein 8.1 Albumin 4.8 Globulin 3.3 Albumin/Globulin Ratio 1.5 Lipase 18 Urine Color Yellow Urine Appearance Cloudy A Urine pH 7.5 Ur Specific [place] 1.021 Urine Protein Trace H Urine Glucose (UA) Negative Urine Ketones 1+ H Urine Blood Negative Urine Nitrite Negative Urine Bilirubin Negative Urine Urobilinogen Negative Ur Leukocyte Esterase 2+ H Urine WBC (Auto) 11-20 H Urine RBC (Auto) 0-2 U Hyaline Cast (Auto) 0-2 U Epithel Cells (Auto) 11-20 H Urine Bacteria (Auto) 2+ H Diagnostic Findings CT scan personally viewed and interpreted and agree with the assessment of moderate small bowel dilation of the mid and distal small bowel. This appears to taper in the terminal ileum which appears to have thickening and inflammation, raising the concern for inflammatory bowel disease. Abdomen/Pelvis CT 04/29/24 03:06 EXAM: CT abd pelvis IV con only CLINICAL HISTORY: lower abd pain , nausea , vomiting , TECHNIQUE: CT of the abdomen and pelvis was performed with contrast, with the following protocol: axial images with, and reconstructed coronal and sagittal images. 94 ml optiray 320 intravenous contrast was administered. One of the following dose reduction techniques was utilized for this exam: Automated exposure control, adjustment of the mA and/or kV according to patient size, and use of iterative reconstruction. DLP 1379.38 COMPARISON: NONE. FINDINGS: Abdomen: Liver: Normal in size, shape, and density. No focal lesions, cysts, or masses were identified. Gallbladder and Biliary System: The gallbladder is surgically removed. The intrahepatic biliary ducts are moderately dilated, the CBD also dilated measures 1.3cm, and no intraluminal calcification or mass was noted. Pancreas: Pancreatic head, body, and tail are visualized and appear normal in size and density. No pancreatic masses or calcifications were noted. The pancreatic duct is not dilated. Spleen: Normal in size, shape, and density. No splenic lesions or masses were identified. Kidneys and Adrenal Glands: Both kidneys are normal in size, shape, and position. Cortical thickness is within normal limits. No renal calculi or hydronephrosis. Adrenal glands are unremarkable with no evidence of masses or hyperplasia. Pelvis: Urinary Bladder: Normal in contour and wall thickness. No intraluminal lesions were identified. Uterus: Status of post hysterectomy. Ovaries: Not-well visualized but no gross abnormalities were noted. Cervix: There is a circular prosthesis around it. Peritoneal and Retroperitoneal Structures: Mild trace of free fluid in the pelvis. No lymphadenopathy was noted. Bowel: Dilation of continuous loops of the central small bowels with kinking of the mesenteric vessels, there is a transitional point in distal ileium where it showed enhancing wall thickening and luminal narrowing as well as engorged mesneteric vessels(comb sign) and few mesenteric adenitides, could be inflammatory bowel disease, likely active Crhons, clinical correlation and follow UP are needed. Multiple uncomplicated left colon diverticulosis was noted. Bones and Soft Tissues: Pelvic bones and soft tissues are unremarkable. No fractures or abnormal masses were identified. IMPRESSION: 1. Dilation of continuous loops of the central small bowels with kinking of the mesenteric vessels, there is a transitional point in distal ileium where it showed enhancing wall thickening and luminal narrowing as well as engorged mesneteric vessels(comb sign) and few mesenteric adenitides, could be inflammatory bowel disease, likely active Crhons, clinical correlation and follow UP are needed. 2. Multiple uncomplicated left colon diverticulosis was noted. 3. The intrahepatic biliary ducts are moderately dilated, the CBD also dilated measures 1.3cm, and no intraluminal calcification or mass was noted. further evaluation with MRCP is suggested if clinically warranted. 4. Status of post cholecystectomy and hysterectomy. Electronically signed by Johny Solis 04-29-2024 05:08 AM PG Care Time/CCT Total # of Minutes Spent Total Time Spent with Patient: Total time spent is greater than 50% in coordination of care (as documented) at patient's floor/unit and/or counseling patient: Coding Level of Care Code 51250 INT INP/OBS CARE 2/55MIN Diagnoses Small bowel obstruction K56.609 H/O hysterectomy with unilateral oophorectomy Z90.710; Z90.721 Hx of cholecystectomy Z90.49 Nausea & vomiting R11.2 Abdominal pain R10.9
--- NOTE | 2024-04-29 09:40 | XRay Report ---
XR KUB/Abdomen 1 view CLINICAL HISTORY: SBO, vomiting TECHNIQUE: 1 view of the abdomen was obtained. Comparison: Comparison is made to CT abdomen pelvis 04/29/2024 FINDINGS: Lung bases are unremarkable. The osseous structures are grossly unremarkable. There is a paucity of b owel gas. Small stool burden is seen. IMPRESSION: Paucity of bowel gas, evaluation for small bowel obstruction is limited. ACT 112: Negative or not required by law. Electronically signed by: Servando Rogers M.D. 04/29/2024 9:38 AM
[2024-04-29 10:08] LABS: C Reactive Protein 2.21 mg/dl (0-0.5); Magnesium 2.1 mg/dl (1.7-2.4)
--- NOTE | 2024-04-29 11:14 | Gastrointestinal Consultation ---
Date of Consultation April 29, 2024 Assessment & Plan (1) Small bowel obstruction: Differential diagnosis for her small bowel obstruction includes adhesions from prior surgery, inflammatory bowel disease such as Crohn's disease in light of her family history and small bowel tumor such as carcinoid or lymphoma based on the location. Infectious enteritis or mesenteritis is less likely but possible. At this point we should just treat her for small bowel obstruction with NG drainage IV fluid. Once small bowel obstruction resolves we can do further imaging to assess the etiology of this event. History of Present Illness Reason for Consultation: Small bowel obstruction Attending Physician: Kaylene Evans DO History of Present Illness Patient was in her usual state of good health until a month ago when she had a self-limited episode of abdominal pain and vomiting which resolved. It was well up until the day of admission when she developed the sudden onset of lower abdominal pain followed by multiple episodes of vomiting which did not stop. CT scan shows a small bowel obstruction with inflammatory changes in the distal ileum. Denies any prior significant GI symptoms or illnesses. Daughter does have Crohn's disease. No other family members with inflammatory bowel disease. Status post a cholecystectomy which was open and a hysterectomy. Denies any recent weight loss fever chills night sweats diarrhea melena or hematochezia. Allergies Allergy/AdvReac Type Severity Reaction Status Date / Time No Known Drug Allergies Allergy Unknown Unverified 12/20/23 15:07 weed pollen AdvReac Unknown Verified 12/20/23 15:07 Home Medications Medication Instructions Recorded Confirmed Type fexofenadine 180 mg tablet 180 mg PO DAILY 02/18/22 04/29/24 History multivitamin 1 tab PO QAM 12/03/22 04/29/24 History fluticasone 250 mcg-salmeterol 50 1 inh inhalation BID #60 ea 04/28/23 04/29/24 Rx mcg/dose blistr powdr for inhalation (Wixela Inhub) cholecalciferol (vitamin D3) 50 6,000 unit PO DAILY 06/07/23 04/29/24 History mcg (2,000 unit) capsule amlodipine 5 mg tablet 5 mg PO DAILY #90 tabs 10/25/23 04/29/24 Rx amoxicillin 875 mg-potassium 1 tab PO BID 10 days #20 tabs 12/16/23 12/16/23 Rx clavulanate 125 mg tablet clobetasol 0.05 % scalp solution 1 applic topical DAILY PRN Rash 12/16/23 04/29/24 History ketoconazole 2 % shampoo 1 applic topical .2 times per week 12/16/23 04/29/24 History PRN Rash fluocinolone acetonide oil 0.01 % drp otic (ear) 12/20/23 12/20/23 History ear drops Patient History Medical History Cystocele Hypertension Allergic rhinitis Asthma Surgical History H/O hysterectomy with unilateral oophorectomy still w/ L ovary; d/t DUB Hx of cholecystectomy Family History Father Myocardial infarction, Onset Age: 72 Coronary heart disease Diabetes Mother No problems noted. Denies family history of Ovarian cancer Prostate cancer Breast cancer Colorectal cancer Social History Smoking Status: Never smoker Second Hand Exposure: Yes; Do You Dip or Chew Tobacco: No; Hx Alcohol Use: No Hx Substance Use: No Preferred Language: Sudanese Communication Ability: Effective Visual Impairment: No Limitations Hearing Ability: Normal Card Checker Required: No Beliefs That Will Affect Care: None marital status: / marital status details: lost spouse (2019) Current Living Situation: Family Current Living Situation Comment: resides with grandson current occupational status: retired How many Children do You have: 3 Other Information That Helps Us Care for You: No Feels Safe at Home: Yes Safety Concerns: Feels Safe At This Time Childhood Exposure to Second-Hand Smoke: Yes Diet: regular Diet Comment: Regular caffeine: Yes (coffee) during the past year weight has: remained stable Dental Care, Regularly: Yes Physical Activity Frequency: Daily Seatbelt Use: always Sunscreen Use: No Assistive Devices: Glasses Review of Systems Review of Systems: No fever No chills No SOB No CP Lower abdominal pain improving Physical Exam Physical Exam: Eyes; anicteric HENT No masses Chest clear to A Cor S1, S2 physiologic Abd: softer nontender no masses Ext no edema Results & Data Vital Signs (Past 12 Hours) Vital Signs Temp Pulse Pulse Pulse Resp BP BP 04/29/24 09:45 04/29/24 09:28 36.6 C 86 16 146/71 H 04/29/24 08:52 86 18 135/89 04/29/24 08:46 80 20 135/89 04/29/24 07:06 80 16 141/82 H 04/29/24 06:00 72 16 143/78 H 04/29/24 05:24 67 15 142/79 H 04/29/24 04:30 69 15 135/73 04/29/24 03:45 79 14 137/75 04/29/24 03:44 78 04/29/24 02:53 36.7 C 93 H 18 168/96 H Pulse Ox O2 Del Method O2 Flow Rate 04/29/24 09:45 Oxymask 3 04/29/24 09:28 98 Oxymask 3 04/29/24 08:52 98 Oxymask 2 04/29/24 08:46 98 Oxymask 2 04/29/24 07:06 99 Room Air 04/29/24 06:00 97 04/29/24 05:24 98 04/29/24 04:30 98 04/29/24 03:45 90 04/29/24 03:44 04/29/24 02:53 97 Room Air Laboratory Results Laboratory Results - last 48 hr 04/29/24 04/29/24 04/29/24 03:08 03:23 09:38 WBC 14.31 H RBC 5.37 Hgb 14.5 POC Hgb 15.0 Hct 44.1 POC Hct 44 MCV 82.1 MCH 27.0 MCHC 32.9 RDW Std Deviation 42.3 RDW Coeff of Lorene 14.3 Plt Count 424 H MPV 10.5 Immature Gran % (Auto) 0.3 Neut % (Auto) 82.9 Lymph % (Auto) 12.5 Traverse % (Auto) 3.7 Eos % (Auto) 0.1 Baso % (Auto) 0.5 Neut # (Auto) 11.87 H Lymph # (Auto) 1.79 Traverse # (Auto) 0.53 Eos # (Auto) 0.01 Baso # (Auto) 0.07 Immature Gran # (Auto) 0.04 ESR 38 H PT 11.1 INR 1.0 POC Sodium 139 Sodium 136 POC Potassium 3.8 Potassium 3.9 POC Chloride 104 Chloride 103 Carbon Dioxide 23 POC Total CO2 23 L Anion Gap 10 POC Anion Gap 17.0 POC BUN 17 BUN 17 Creatinine 0.68 POC Creatinine 0.7 Est Cr Clr Drug Dosing 85.3 eGFR 92.48 BUN/Creatinine Ratio 25.0 H Glucose 165 H POC Glucose (other) 169 H Calcium 10.1 POC Ioniz Calcium Amisha 1.13 Magnesium 2.1 Total Bilirubin 0.7 AST 20 ALT 14 Alkaline Phosphatase 97 Troponin I High Sens 4.8 C-Reactive Protein 2.21 H Total Protein 8.1 Albumin 4.8 Globulin 3.3 Albumin/Globulin Ratio 1.5 Lipase 18 Urine Color Yellow Urine Appearance Cloudy A Urine pH 7.5 Ur Specific [place] 1.021 Urine Protein Trace H Urine Glucose (UA) Negative Urine Ketones 1+ H Urine Blood Negative Urine Nitrite Negative Urine Bilirubin Negative Urine Urobilinogen Negative Ur Leukocyte Esterase 2+ H Urine WBC (Auto) 11-20 H Urine RBC (Auto) 0-2 U Hyaline Cast (Auto) 0-2 U Epithel Cells (Auto) 11-20 H Urine Bacteria (Auto) 2+ H Diagnostic Findings Abdomen/Pelvis CT 04/29/24 03:06 EXAM: CT abd pelvis IV con only CLINICAL HISTORY: lower abd pain , nausea , vomiting , TECHNIQUE: CT of the abdomen and pelvis was performed with contrast, with the following protocol: axial images with, and reconstructed coronal and sagittal images. 94 ml optiray 320 intravenous contrast was administered. One of the following dose reduction techniques was utilized for this exam: Automated exposure control, adjustment of the mA and/or kV according to patient size, and use of iterative reconstruction. DLP 1379.38 COMPARISON: NONE. FINDINGS: Abdomen: Liver: Normal in size, shape, and density. No focal lesions, cysts, or masses were identified. Gallbladder and Biliary System: The gallbladder is surgically removed. The intrahepatic biliary ducts are moderately dilated, the CBD also dilated measures 1.3cm, and no intraluminal calcification or mass was noted. Pancreas: Pancreatic head, body, and tail are visualized and appear normal in size and density. No pancreatic masses or calcifications were noted. The pancreatic duct is not dilated. Spleen: Normal in size, shape, and density. No splenic lesions or masses were identified. Kidneys and Adrenal Glands: Both kidneys are normal in size, shape, and position. Cortical thickness is within normal limits. No renal calculi or hydronephrosis. Adrenal glands are unremarkable with no evidence of masses or hyperplasia. Pelvis: Urinary Bladder: Normal in contour and wall thickness. No intraluminal lesions were identified. Uterus: Status of post hysterectomy. Ovaries: Not-well visualized but no gross abnormalities were noted. Cervix: There is a circular prosthesis around it. Peritoneal and Retroperitoneal Structures: Mild trace of free fluid in the pelvis. No lymphadenopathy was noted. Bowel: Dilation of continuous loops of the central small bowels with kinking of the mesenteric vessels, there is a transitional point in distal ileium where it showed enhancing wall thickening and luminal narrowing as well as engorged mesneteric vessels(comb sign) and few mesenteric adenitides, could be inflammatory bowel disease, likely active Crhons, clinical correlation and follow UP are needed. Multiple uncomplicated left colon diverticulosis was noted. Bones and Soft Tissues: Pelvic bones and soft tissues are unremarkable. No fractures or abnormal masses were identified. IMPRESSION: 1. Dilation of continuous loops of the central small bowels with kinking of the mesenteric vessels, there is a transitional point in distal ileium where it showed enhancing wall thickening and luminal narrowing as well as engorged mesneteric vessels(comb sign) and few mesenteric adenitides, could be inflammatory bowel disease, likely active Crhons, clinical correlation and follow UP are needed. 2. Multiple uncomplicated left colon diverticulosis was noted. 3. The intrahepatic biliary ducts are moderately dilated, the CBD also dilated measures 1.3cm, and no intraluminal calcification or mass was noted. further evaluation with MRCP is suggested if clinically warranted. 4. Status of post cholecystectomy and hysterectomy. Electronically signed by Johny Solis 04-29-2024 05:08 AM KUB X-Ray 04/29/24 08:03 XR KUB/Abdomen 1 view CLINICAL HISTORY: SBO, vomiting TECHNIQUE: 1 view of the abdomen was obtained. Comparison: Comparison is made to CT abdomen pelvis 04/29/2024 FINDINGS: Lung bases are unremarkable. The osseous structures are grossly unremarkable. There is a paucity of bowel gas. Small stool burden is seen. IMPRESSION: Paucity of bowel gas, evaluation for small bowel obstruction is limited. ACT 112: Negative or not required by law. Electronically signed by: Servando Rogers M.D. 04/29/2024 9:38 AM PG Care Time/CCT Total # of Minutes Spent Total Time Spent with Patient: Total time spent is greater than 50% in coordination of care (as documented) at patient's floor/unit and/or counseling patient: Coding Level of Care Code 10595 IN/OBS CONSULT LVL 4,60M Diagnoses Small bowel obstruction K56.609
[2024-04-29] MEDS: FLUTICASONE/VILANTEROL 200/25MCG 14 PUFFS/INHALER INH SCH (11:16)
[2024-04-29] MEDS: D5W AND 1/2NSS + 20MEQ KCL 20 MEQ/1,000 ML BAG IV SCH (11:16)
[2024-04-29] MEDS ORDERED: Nursing to Pharmacy Communication SCH (20:30)
[2024-04-30] MEDS: ACETAMINOPHEN 1,000 MG/100 ML VIAL IV PRN (05:04)
[2024-04-30 07:33] LABS: Hematocrit (blood only) 37.8 % (37.0-47.0); Hemoglobin 12.2 g/dl (12.0-16.0); Mean Corpuscular Hemoglobin 27.4 pg (25.0-34.0); Mean Corpuscular Hgb Conc 32.3 g/dL (32.0-36.0); Mean Corpuscular Volume 84.8 fL (80.0-100.0); Mean Platelet Volume 10.9 fL (9.4-12.4); Platelet Count 329 K/uL (130-400); RDW Coefficient of Variation 14.5 % (11.5-14.5); RDW Standard Deviation 44.8 fL (36.4-46.3); Red Blood Count 4.46 M/uL (4.20-5.40)
[2024-04-30 07:52] LABS: Albumin Globulin Ratio 1.5 (0.9-2); Albumin Level 3.6 gm/dl (3.4-5.0); BUN Creatinine Ratio 17.2 (10-20); Bilirubin,Total 0.6 mg/dl (0.2-1.0); Calcium 8.6 mg/dl (8.6-10.3); Creatinine Clr Calc Pharmacy 100.1 ml/min; Globulin 2.4 gm/dl (2.5-4.0)
--- NOTE | 2024-04-30 08:09 | Surgery Progress Note ---
Date of Service April 30, 2024 Assessment & Plan (1) Small bowel obstruction: Plan: Small bowel obstruction, appears to be resolving Continue NG tube to low intermittent suction, if continues to pass flatus may remove and trial on clears Outpatient evaluation by GI Dr. Oconnor will be taking over her care this week Admission and Anticipated Discharge Date Admission Date: April 29, 2024 Subjective Admitted with SBO, feeling better than upon arrival. The tube is causing her a little bit of nausea, but otherwise her pain is subsided and she is passing gas. GI saw her yesterday and recommended outpatient colonoscopy once symptoms resolve. Physical Exam Constitutional: WD/WN, vitals as above Respiratory: normal respiratory effort, lungs clear to auscultation Cardiovascular: RRR, no murmur, no edema Gastrointestinal (Abdomen): normal bowel sounds, soft, nontender, no hepatosplenomegaly Inspection/Auscultation: + abdomen distended (Mild) Results & Data Vital Signs (Past 12 Hours) Vital Signs Temp Pulse Pulse Resp BP Pulse Ox O2 Del Method 04/30/24 08:00 36.3 C L 68 18 124/78 90 Room Air 04/29/24 20:56 36.8 C 87 18 110/69 91 Room Air 04/29/24 20:55 Room Air Laboratory Results Laboratory Results - last 24 hr 04/29/24 04/30/24 09:38 06:58 WBC 9.10 RBC 4.46 Hgb 12.2 Hct 37.8 MCV 84.8 MCH 27.4 MCHC 32.3 RDW Std Deviation 44.8 RDW Coeff of Lorene 14.5 Plt Count 329 MPV 10.9 ESR 38 H Sodium 140 Potassium 4.0 Chloride 107 Carbon Dioxide 29 Anion Gap 4 BUN 10 Creatinine 0.58 L Est Cr Clr Drug Dosing 100.1 eGFR 96.09 BUN/Creatinine Ratio 17.2 Glucose 135 H Calcium 8.6 Magnesium 2.1 2.0 Total Bilirubin 0.6 AST 15 ALT 11 Alkaline Phosphatase 72 C-Reactive Protein 2.21 H Total Protein 6.0 D Albumin 3.6 Globulin 2.4 L Albumin/Globulin Ratio 1.5 PG Care Time/CCT Total # of Minutes Spent Total Time Spent with Patient: Total time spent is greater than 50% in coordination of care (as documented) at patient's floor/unit and/or counseling patient: Coding Level of Care Code 86868 SUB INP/OBS CARE 2/35MIN Diagnoses Small bowel obstruction K56.606
[2024-04-30] MEDS ORDERED: COUGH DROP (SUGAR FREE) LOZ 24 LOZ/1 BOX BUCCAL PRN (11:33)
--- NOTE | 2024-04-30 11:35 | Gastroenterology Progress Note ---
Date of Service April 30, 2024 Assessment & Plan (1) Small bowel obstruction: Plan: SBO seems to be resolving. she is feeling better, passing gas, and had a bowel movement this morning. - she will need eventual colonoscopy to further evaluate changes in ileum on CT. Admission and Anticipated Discharge Date Admission Date: April 29, 2024 Supervising Physician Co-Signing Physician Notes CT findings and her history of Crohn's and a daughter make this highly suspicious for ileal Crohn's with SBO. Patient is no longer having vomiting she has a relatively soft abdomen and is having bowel movements. If this is Crohn's without treatment she will likely have a repeat small bowel obstruction. Adhesions are under differential below I think the CT findings are more suspicious for Crohn's. Patient is agreeable to trying a bowel preparation. If she is able to tolerate we can do a colonoscopy tomorrow. If Crohn's is identified then she can be started on some steroids such as budesonide with then further outpatient follow-up for more of a maintenance type therapy such as a biological Remicade or Humira Subjective Patient tells me that she has felt better since she had placement of NG tube. she denies nausea, vomiting, or further abdominal pain. she has been passing gas and had a bowel movement. no new concerns. Review of Systems Review of Systems: All systems reviewed & are unremarkable except as noted in HPI & below Physical Exam Constitutional: WD/WN, vitals as above ENMT: NG in place. Currently capped. Respiratory: normal respiratory effort, lungs clear to auscultation Cardiovascular: Rate/Rhythm: regular rate and regular rhythm Gastrointestinal (Abdomen): normal bowel sounds, soft, nontender, no hepatosplenomegaly Psychiatric: Orientation: alert and oriented x 3 Results & Data Results & Data Vital Signs (Past 12 Hours) Vital Signs Temp Pulse Resp BP Pulse Ox O2 Del Method 04/30/24 08:28 92 Room Air 04/30/24 08:00 97.3 F L 68 18 124/78 90 Room Air Coding Level of Care Code 67048 SUB INP/OBS CARE 05/12MIN Diagnoses Small bowel obstruction K56.609
[2024-04-30 15:20] VITALS: BP 142/82; PULSE 92; RESP 16; TEMP 98.2; O2SAT 96
[2024-04-30] MEDS ORDERED: LAVAGE SOLUTION 4000ML PO SCH (17:15)
--- NOTE | 2024-04-30 19:00 | Discharge Summary ---
Discharge Summary Date of Service April 30, 2024 Principal Dx & Hospital Course #1 = Principal Diagnosis (1) Small bowel obstruction: 74-year-old woman with history of cholecystectomy and hysterectomy admitted with small bowel obstruction. This was confirmed on CT and there was transition point in distal ileum with suggestion of possible IBD: "Dilation of continuous loops of the central small bowels with kinking of the mesenteric vessels, there is a transitional point in distal ileium where it showed enhancing wall thickening and luminal narrowing as well as engorged mesneteric vessels(comb sign) and few mesenteric adenitides, could be inflammatory bowel disease, likely active Crhons, clinical correlation and follow UP are needed" General surgery, gastroenterology consulted SBO resolved with conservative measures - IV fluids/electrolytes, NG tube, antiemetics. Having several stools today and tolerating liquids well. No further abdominal pain. Abdominal exam tonight was benign Leukocytosis resolved, afebrile. CRP 2.21 and ESR 38. No recent weight loss, diarrhea, chronic abdominal pain etc. Does have strong FH of Crohn's - sister and daughter. Corporate Buyer today recommended colonoscopy which could be done tomorrow. I discussed with Florence and her daughter and they both prefer strongly to wait a little while and follow up as outpatient. Florence's sister had a colonoscopy perforation once and she would rather wait until outpatient, however, they both understand that if she does have IBD related obstruction there is a high chance of recurrence until IBD is treated. Discussed return precautions with Florence and her daughter and continued advancement to low fiber diet until GI follow up. (2) Hypertension: Continue amlodipine 5 mg p.o. daily Plan Asthmastable, no cough, shortness of breath or wheeze Continue control inhaler Incidental CT finding: "The intrahepatic biliary ducts are moderately dilated, the CBD also dilated measures 1.3cm, and no intraluminal calcification or mass was noted. further evaluation with MRCP is suggested if clinically warranted. " She did not have RUQ pain or tenderness, normal LFT and bilirubin. These may be post-cholecystectomy changes. Clinically no evidence of choledocholithiasis or cholangitis. Follow up with gastroenterology. Abnormal UA without dysuria and urine culture multiple organisms. Not consistent with UTI. Notes For Next Care Provider Gastroenterology follow up for colonoscopy, consider fecal calprotectin Medication Changes From Visit None Admission HPI Per Admitting Provider Florence Hunt is a 74yo female with HTN and Asthma presenting with abdominal pain. Patient developed fairly severe lower abdominal pain approximately 6 hours ago. She has been having nausea and non-bloody/non-bilious vomiting as well. Some abdominal distention. Patient also endorses some subjective fevers and chills but denies chest pain, cough, SOB, diarrhea or urinary symptoms. Last BM yesterday - two normal BMs. No flatus now. In the ER she is afebrile, HD stable, NAD ER Course: Zofran Tylenol Normal saline x 1 L Discharge Exam PHYSICAL EXAMINATION Last 24h vital signs reviewed, see documentation in flowsheet General: comfortable appearing, no distress HEENT: Normocephalic, atraumatic, pupils round and equal, sclerae anicteric, no conjunctival injection, moist mucus membranes Lungs: Normal respiratory effort. Clear to auscultation bilaterally. No RRW Heart: Regular rate and rhythm, no murmurs. No JVD Abdomen: Soft, nontender, nondistended. Bowel sounds present. Extremities: Warm, dry, well-perfused. No extremity edema. Neuro: Alert and oriented x 4, face symmetric, moves 4 extremities well Psych: Normal affect and behavior Discharge Plan Discharge Items Patient Disposition: Home - Self-Care Reason For Visit: SBO Discharge Diagnosis: Small bowel obstruction Activity: Resume your previous activity Non-emergency contact: Primary Care Provider and Corporate Buyer Call non-emergency contact if: you have any medication questions and your symptoms worsen Follow-up/Referrals: Cristina Chilel DO [Primary Care Provider] - Diet: Low Fiber Addtl Attending Provider Instructions: You were treated for small bowel obstruction. This has resolved. There is some concern for Crohn's disease based on your CT scan and family history. Colonoscopy is recommended - follow up with gastroenterology as soon as possible. Stay on a soft/liquid diet tonight and for breakfast - for example - yogurt, ice cream, shakes, soup, hot cereal etc If you're doing well by lunch or dinner you can start eating solid food Avoid too much fiber until you follow up with GI Return to the ER if you have symptoms of recurrent bowel obstruction - for example - nausea/vomiting, abdominal pain, distention, decreased gas/stool. Also seek medical attention if you have fever, abdominal pain. It was a pleasure taking care of you in the hospital, Maria Antonia Bergman MD Pending Studies at Discharge: No Stand-Alone Forms: My [facility], Smoking Cessation Medications and DC Order Prescriptions: Continued fluticasone propion-salmeterol [Wixela Inhub] 250-50 mcg/dose blister with device 1 inh inhalation BID Qty: 60 5RF amlodipine 5 mg tablet 5 mg PO DAILY Qty: 90 3RF multivitamin Tablet 1 tab PO QAM Rx Instructions: with probiotic (Ollys brand) fexofenadine 180 mg tablet 180 mg PO DAILY cholecalciferol (vitamin D3) 50 mcg (2,000 unit) capsule 6,000 unit PO DAILY clobetasol 0.05 % solution 1 applic topical DAILY PRN (Reason: Rash) ketoconazole 2 % shampoo 1 applic topical .2 times per week PRN (Reason: Rash) fluocinolone acetonide oil 0.01 % drops otic (ear) Discontinued Fluzone HighDose Quad 23-24 PF 240 mcg/0.7 mL syringe 0.7 ml IM ONCE Qty: 0.7 0RF amoxicillin-pot clavulanate 875-125 mg tablet 1 tab PO BID 10 Days Qty: 20 0RF Discharge Orders: Discharge Order (Routine); Ordered 04/30/24 Ordered By: Maria Antonia Bergman Admission Data Admit Date/Time: 04/29/24 06:09 Attending Provider: Maria Antonia Bergman Admit Provider: Kaylene Evans Primary Care Provider: Cristina Chilel Other Providers: Memo Yeh; Kaylene Evnas; Pete Powers I Other Interventions: Discharge Summary Assessment (RN) Last Done: 04/30/24 18:41 Hospital Stay Data Consultations 04/29/24 05:52 ED Decision to Admit Stat 04/29/24 06:09 Consult General Surgery Routine 04/29/24 09:38 Consult Gastroenterology Routine Diagnostic Imagining Performed 04/29/24 03:06 CT abd pelvis IV con only Stat Pending Results Patient Have Any Pending Studies at Discharge: No Discharge Instructions Given to Patient (Per Discharging Provider) You were treated for small bowel obstruction. This has resolved. There is some concern for Crohn's disease based on your CT scan and family history. Colonoscopy is recommended - follow up with gastroenterology as soon as possible. Stay on a soft/liquid diet tonight and for breakfast - for example - yogurt, ice cream, shakes, soup, hot cereal etc If you're doing well by lunch or dinner you can start eating solid food Avoid too much fiber until you follow up with GI Return to the ER if you have symptoms of recurrent bowel obstruction - for example - nausea/vomiting, abdominal pain, distention, decreased gas/stool. Also seek medical attention if you have fever, abdominal pain. It was a pleasure taking care of you in the hospital, Maria Antonia Bergman MD Total Time Total Time Spent Total Time Spent (In Minutes): I personally spent: 50 minutes today on clinical care activities including: reviewing chart notes and vital signs reviewing labs reviewing studies discussion with risk consultant(s) examining and counseling the patient counseling the patient's family writing orders writing discharge instructions documentation Coding Level of Care Code 36154 INP/OBS DISCH >30 MIN Diagnoses Small bowel obstruction K56.609 Hypertension I10
== END 2024-04-30 19:30 | disposition home or self-care (01) | DRG 390 ==
LOC: SUATTDRO → ED 02:49 → 3N 06:09 → SUATTDRO 06:09 → INTOOBSV 06:09 → 3N 08:52

== ENCOUNTER 2024-06-20 00:10 | Observation (INO) ==
[2024-06-20 00:57] LABS: Basophils # (auto) 0.08 K/uL (0.00-0.20); Basophils % (auto) 0.5 %; Eosinophils # (auto) 0.03 K/uL (0.00-0.50); Eosinophils % (auto) 0.2 %; Hematocrit (blood only) 45.2 % (37.0-47.0); Immature Granulocytes # (auto) 0.04 K/uL (0.01-0.20); Immature Granulocytes % (auto) 0.2 %; Lymphocytes # (auto) 1.16 K/uL (1.20-3.40); Mean Corpuscular Hemoglobin 27.6 pg (25.0-34.0); Mean Corpuscular Hgb Conc 33.2 g/dL (32.0-36.0); Mean Corpuscular Volume 83.1 fL (80.0-100.0); Mean Platelet Volume 11.1 fL (9.4-12.4); Monocytes # (auto) 0.58 K/uL (0.11-0.59); Monocytes % (auto) 3.5 %; Neutrophils # (auto) 14.78 K/uL (1.40-6.50); Neutrophils % (auto) 88.6 %; Platelet Count 437 K/uL (130-400); RDW Coefficient of Variation 15.3 % (11.5-14.5); Red Blood Count 5.44 M/uL (4.20-5.40); White Blood Count 16.67 K/ul (4.8-10.8)
--- NOTE | 2024-06-20 01:05 | Emergency Department Note ---
Impression & Plan Nausea & vomiting, Abdominal pain, Acute UTI (urinary tract infection), Choledocholithiasis, Leukocytosis ED Provider Note HISTORY OF PRESENT ILLNESS: Patient is a 74-year-old female presenting with lower mid abdominal pain. Patient reports pain started on 06/19/2024 at around 2 PM. States that the pain seems to come and go in intensity but is always present. Currently rates the pain an 8 out of 10 and states it feels very crampy and sharp in nature. She reports nausea and took half a pill of Phenergan for the nausea, but it did not help. She has had multiple episodes of vomiting. Denies any diarrhea. She did report taking a dose of MiraLAX at around 2 PM because she thought that she was constipated. She states that she had a regular bowel movement earlier today. She has a abdominal surgical history significant for cholecystectomy. Currently rates her pain an 8 out of 10. ROS: as above PHYSICAL EXAM: Constitutional: Patient appears in no acute distress. HENT: Head: Normocephalic and atraumatic. Eyes: EOMI, PERRL Mouth/Throat: Mucous membranes moist. Neck: Trachea midline. Neck supple. Cardiovascular: RRR, No murmurs, rubs or gallops. Intact distal pulses. Pulmonary/Chest: No respiratory distress. Breath sounds clear and equal bilaterally. No wheezes or rales. Abdominal: Abdomen soft, no rebound or guarding. Diffuse TTP Musculoskeletal: No edema, tenderness or deformity noted. Skin: Warm and dry. No rash, erythema, pallor or cyanosis Psychiatric: Appropriate mood and affect for situation. Neurological: Alert and keenly responsive. CN II-XII grossly intact, moving all extremities equally and fully. MDM: - Vitals signs stable - History obtained via patient. History as above. - Chronic conditions affecting care: HTN; hx of small bowel obstruction - Differential diagnoses include, but are not limited to: bowel obstruction; enteritis; choledocholithiasis; diverticulitis; viral syndrome - Order placed for continuous cardiac monitoring. At this time, monitor showed rate of 70 bpm with normal sinus rhythm, per my interpretation. - External medical records reviewed. Wellness visit note dated 06/11/2024 was reviewed. Patient was seen for her annual wellness exam. - Laboratory workup interpreted by myself showed leukocytosis (WBC 16.67); thrombocytosis (437); normal PT/INR; normal lactate; stable electrolytes; normal AST/ALT; normal lipase; normal total bilirubin - UA showed evidence of infection. Given 2g IV rocephin - Given 1g IV tylenol, 4 mg IV zofran and 1g IV tylenol for symptomatic management - CT abdomen/pelvis with IV contrast shows a moderate dilatation of the intrahepatic biliary radicles and common bile duct. Recommended MRCP. Did have some fluid-filled jejunal bowel loops in the left side of the abdomen concerning for enteritis. - Patient does not have any reproducible right upper quadrant abdominal pain. Do think that choledocholithiasis is less likely, in the setting of her lack of right upper quadrant pain as well as her normal AST/ALT and normal lipase. However, MRCP was ordered. - MRCP showed choledocholithiasis with subsequent biliary obstruction. - Patient given a dose of zosyn for broadened antibiotic coverage. - Unfortunately, we do not currently have a biosecurity officer on who could do an ERCP. Discussed case with case investigator in the emergency department who reports that patient could be transferred to [place] or [facility]. Patient requesting transfer to [facility]. - Patient given an additional 500 cc NS and started on 80 cc/hr of NS for maintenance fluids - Discussed case with [facility] hospitalist, Dr. Duran, at 5:48 on 06/20/2024. He accepted the patient for transfer to a nonmonitored bed as a level 3 transfer at 5:50 AM on 06/20/2024. Patient will be monitored in the [facility] emergency department until bed can be assigned and transport can be arranged. - Patient signed out to Dr. Moran pending patient's bed assignment and arrangement of transport to [facility]. New 8 hours Zosyn was ordered. ASSESSMENT AND PLAN: Diagnosis: Choledocholithiasis; nausea and vomiting; abdominal pain; acute UTI; leukocytosis Plan: transfer Past Med/Surg History Problem List (Updated 06/20/24 @ 05:35 by Dralene Liu MD) Leukocytosis (Acute) Choledocholithiasis (Acute) Acute UTI (urinary tract infection) (Acute) Abdominal pain (Acute) Nausea & vomiting (Acute) History of small bowel obstruction (04/2024) History of squamous cell carcinoma of skin Cystocele Hypertension Vitamin D deficiency Allergic rhinitis Asthma Medical History Abnormal CT of the abdomen Encounter for pre-operative examination Hx of migraines History of cystocele History of COVID-19 Hypertension History of squamous cell carcinoma Asthma PONV (postoperative nausea and vomiting) Small bowel obstruction (04/29/24) Surgical History Hx of colonoscopy History of bunionectomy History of bladder surgery H/O hysterectomy with unilateral oophorectomy Hx of cholecystectomy Family History Father Myocardial infarction, Onset Age: 72 Coronary heart disease Diabetes Mother No problems noted. Denies family history of Ovarian cancer Prostate cancer Breast cancer Colorectal cancer Social History Smoking Status: Never smoker Second Hand Exposure: No; Do You Dip or Chew Tobacco: No; Hx Alcohol Use: No Hx Substance Use: No Preferred Language: Telugu Communication Ability: Effective Visual Impairment: No Limitations Hearing Ability: Normal Fire Safety Manager Required: No Beliefs That Will Affect Care: None marital status: / marital status details: lost spouse (2019) Current Living Situation: Family Current Living Situation Comment: Grandson current occupational status: retired How many Children do You have: 3 Feels Safe at Home: Yes Childhood Exposure to Second-Hand Smoke: Yes Diet: regular Diet Comment: Regular caffeine: Yes (coffee) during the past year weight has: remained stable Dental Care, Regularly: Yes Physical Activity Frequency: Daily Seatbelt Use: always Sunscreen Use: No Assistive Devices: Glasses Allergies Allergies Allergy/AdvReac Type Severity Reaction Status Date / Time cat dander Allergy Intermediate Itchy/Watery Verified 06/11/24 13:44 Eyes, Congestion weed pollen Allergy Intermediate Itchy/Watery Verified 06/11/24 13:44 Eyes, Congestion No Known Drug Allergies Allergy Unknown Unknown Verified 06/11/24 13:44 Home Meds Home Medications Medication Instructions Recorded Confirmed fexofenadine 180 mg tablet 180 mg PO QAM 02/18/22 06/20/24 (Angela Allergy) multivitamin 1 tab PO QAM 12/03/22 06/20/24 cholecalciferol (vitamin D3) 50 6,000 unit PO QAM 06/07/23 06/20/24 mcg (2,000 unit) capsule clobetasol 0.05 % scalp solution 1 applic topical DAILY PRN Rash 12/16/23 06/20/24 ketoconazole 2 % shampoo 1 applic topical .2 times per week 12/16/23 06/20/24 PRN Rash fluocinolone acetonide oil 0.01 % 1 drp otic (ear) DAILY PRN 12/20/23 06/20/24 ear drops Itchiness amlodipine 5 mg tablet 5 mg PO QAM 05/21/24 06/20/24 nystatin 100,000 unit/gram topical 1 applic topical BID PRN Rash 05/21/24 06/20/24 cream Previous Rx's Medication Instructions Recorded clotrimazole-betamethasone 1 1 applic topical BID 2 weeks #45 06/11/24 %-0.05 % topical cream grams fluticasone 250 mcg-salmeterol 50 1 inh inhalation BID #60 ea 06/11/24 mcg/dose blistr powdr for inhalation (Wixela Inhub) Results & Data (ED) Vital Signs Vital Signs - 24 hr 06/20/24 00:23 06/20/24 01:14 06/20/24 01:21 Temperature 36.6 C Temperature Source Temporal Artery Scan Pulse Rate 89 70 48 L Pulse Rate [Apical] Pulse Rhythm Regular Pulse Rhythm [Apical] Pulse Strength [Apical] Respiratory Rate 20 18 Respiratory Effort / Characteristics Respiratory Depth Respiratory Pattern Blood Pressure 136/89 Blood Pressure [Right Arm] Blood Pressure Mean 104 Blood Pressure Mean [Right Arm] Blood Pressure Position [Right Arm] Pulse Oximetry 95 96 Oxygen Delivery Method Room Air Room Air Sepsis Recent Fever Within 48 Hours No Sepsis New/Unexplained Change in Mental Status No Sepsis Action Taken by Nursing No Action Required 06/20/24 01:21 06/20/24 03:00 06/20/24 05:06 Temperature Temperature Source Pulse Rate 61 Pulse Rate [Apical] 70 68 Pulse Rhythm Pulse Rhythm [Apical] Regular Regular Pulse Strength [Apical] Normal Normal Respiratory Rate 18 17 Respiratory Effort / Characteristics Non-Labored Non-Labored Respiratory Depth Normal Normal Respiratory Pattern Regular Regular Blood Pressure Blood Pressure [Right Arm] 139/79 130/85 Blood Pressure Mean Blood Pressure Mean [Right Arm] 99 100 Blood Pressure Position [Right Arm] Sitting Sitting Pulse Oximetry 94 98 Oxygen Delivery Method Room Air Room Air Sepsis Recent Fever Within 48 Hours Sepsis New/Unexplained Change in Mental Status Sepsis Action Taken by Nursing Laboratory Data 06/20/24 00:33 06/20/24 00:33 Lab Results 06/20/24 06/20/24 06/20/24 Range/Units 00:33 01:07 01:10 WBC 16.67 H (4.8-10.8) K/ul RBC 5.44 H (4.20-5.40) M/uL Hgb 15.0 (12.0-16.0) g/dl Hct 45.2 (37.0-47.0) % MCV 83.1 (80.0-100.0) fL MCH 27.6 (25.0-34.0) pg MCHC 33.2 (32.0-36.0) g/dL RDW Std Deviation 46.0 (36.4-46.3) fL RDW Coeff of [place] 15.3 H (11.5-14.5) % Plt Count 437 H (130-400) K/uL MPV 11.1 (9.4-12.4) fL Immature Gran % (Auto) 0.2 % Neut % (Auto) 88.6 % Lymph % (Auto) 7.0 % [place] % (Auto) 3.5 % Eos % (Auto) 0.2 % Baso % (Auto) 0.5 % Neut # (Auto) 14.78 H (1.40-6.50) K/uL Lymph # (Auto) 1.16 L (1.20-3.40) K/uL [place] # (Auto) 0.58 (0.11-0.59) K/uL Eos # (Auto) 0.03 (0.00-0.50) K/uL Baso # (Auto) 0.08 (0.00-0.20) K/uL Immature Gran # (Auto) 0.04 (0.01-0.20) K/uL PT Cancelled INR Cancelled Sodium 139 (136-145) mmol/L Potassium 4.2 (3.5-5.1) mmol/L Chloride 103 (98-107) mmol/L Carbon Dioxide 29 (21-32) mmol/L Anion Gap 7 (3-11) BUN 19 (6-23) mg/dl Creatinine 0.69 (0.6-1.2) mg/dl Est Cr Clr Drug Dosing 79.6 ml/min eGFR 92.15 BUN/Creatinine Ratio 27.5 H (10-20) Glucose 139 H (70-99(Fasting)) mg/dl Lactate 1.3 (0.4-2.0) mmol/L Calcium 10.2 (8.6-10.3) mg/dl Total Bilirubin 0.7 (0.2-1.0) mg/dl AST 22 (13-39) U/L ALT 16 (7-52) U/L Alkaline Phosphatase 111 H (34-104) U/L Total Protein 8.2 (6.0-8.3) gm/dl Albumin 4.9 (3.4-5.0) gm/dl Globulin 3.3 (2.5-4.0) gm/dl Albumin/Globulin Ratio 1.5 (0.9-2) Lipase 18 (11-82) U/L Urine Color Yellow Urine Appearance Turbid A (Clear) Urine pH 7.0 (4.5-7.5) Ur Specific [place] 1.020 (1.000-1.030) Urine Protein Negative (Negative) Urine Glucose (UA) Negative (Negative) Urine Ketones 2+ H (Negative) Urine Blood Negative (Negative) Urine Nitrite Negative (Negative) Urine Bilirubin Negative (Negative) Urine Urobilinogen Negative (Negative) Ur Leukocyte Esterase 3+ H (Negative) Urine WBC (Auto) 21-50 H (0-5) /hpf Urine RBC (Auto) 0-2 (0-2) /hpf U Hyaline Cast (Auto) 0-2 (0-2) /lpf U Epithel Cells (Auto) >20 H (0-2) /hpf Urine Bacteria (Auto) 2+ H (None Seen) Adenovirus (PCR) (NotDetected) B. pertussis DNA (PCR) (NotDetected) B.parapertussis DNA PCR (NotDetected) C. pneumoniae DNA (PCR) (NotDetected) Coronavirus OC43 (PCR) (NotDetected) Coronavirus HKU1 (PCR) (NotDetected) Coronavirus 229E (PCR) (NotDetected) SARS-CoV-2 (PCR) (NotDetected) Coronavirus NL63 (PCR) (NotDetected) Human Metapneumovir PCR (NotDetected) Influenza Type A (PCR) (NotDetected) Influenza Type B (PCR) (NotDetected) M. pneumoniae (PCR) (NotDetected) Parainfluenza 1 (PCR) (NotDetected) Parainfluenza 2 (PCR) (NotDetected) Parainfluenza 3 (PCR) (NotDetected) Parainfluenza 4 (PCR) (NotDetected) RSV (PCR) (NotDetected) Entero/Rhino (PCR) (NotDetected) 06/20/24 06/20/24 Range/Units 02:25 04:14 WBC (4.8-10.8) K/ul RBC (4.20-5.40) M/uL Hgb (12.0-16.0) g/dl Hct (37.0-47.0) % MCV (80.0-100.0) fL MCH (25.0-34.0) pg MCHC (32.0-36.0) g/dL RDW Std Deviation (36.4-46.3) fL RDW Coeff of [place] (11.5-14.5) % Plt Count (130-400) K/uL MPV (9.4-12.4) fL Immature Gran % (Auto) % Neut % (Auto) % Lymph % (Auto) % [place] % (Auto) % Eos % (Auto) % Baso % (Auto) % Neut # (Auto) (1.40-6.50) K/uL Lymph # (Auto) (1.20-3.40) K/uL [place] # (Auto) (0.11-0.59) K/uL Eos # (Auto) (0.00-0.50) K/uL Baso # (Auto) (0.00-0.20) K/uL Immature Gran # (Auto) (0.01-0.20) K/uL PT 11.2 INR 1.0 Sodium (136-145) mmol/L Potassium (3.5-5.1) mmol/L Chloride (98-107) mmol/L Carbon Dioxide (21-32) mmol/L Anion Gap (3-11) BUN (6-23) mg/dl Creatinine (0.6-1.2) mg/dl Est Cr Clr Drug Dosing ml/min eGFR BUN/Creatinine Ratio (10-20) Glucose (70-99(Fasting)) mg/dl Lactate (0.4-2.0) mmol/L Calcium (8.6-10.3) mg/dl Total Bilirubin (0.2-1.0) mg/dl AST (13-39) U/L ALT (7-52) U/L Alkaline Phosphatase (34-104) U/L Total Protein (6.0-8.3) gm/dl Albumin (3.4-5.0) gm/dl Globulin (2.5-4.0) gm/dl Albumin/Globulin Ratio (0.9-2) Lipase (11-82) U/L Urine Color Urine Appearance (Clear) Urine pH (4.5-7.5) Ur Specific [place] (1.000-1.030) Urine Protein (Negative) Urine Glucose (UA) (Negative) Urine Ketones (Negative) Urine Blood (Negative) Urine Nitrite (Negative) Urine Bilirubin (Negative) Urine Urobilinogen (Negative) Ur Leukocyte Esterase (Negative) Urine WBC (Auto) (0-5) /hpf Urine RBC (Auto) (0-2) /hpf U Hyaline Cast (Auto) (0-2) /lpf U Epithel Cells (Auto) (0-2) /hpf Urine Bacteria (Auto) (None Seen) Adenovirus (PCR) Not Detected (NotDetected) B. pertussis DNA (PCR) Not Detected (NotDetected) B.parapertussis DNA PCR Not Detected (NotDetected) C. pneumoniae DNA (PCR) Not Detected (NotDetected) Coronavirus OC43 (PCR) Not Detected (NotDetected) Coronavirus HKU1 (PCR) Not Detected (NotDetected) Coronavirus 229E (PCR) Not Detected (NotDetected) SARS-CoV-2 (PCR) Not Detected (NotDetected) Coronavirus NL63 (PCR) Not Detected (NotDetected) Human Metapneumovir PCR Not Detected (NotDetected) Influenza Type A (PCR) Not Detected (NotDetected) Influenza Type B (PCR) Not Detected (NotDetected) M. pneumoniae (PCR) Not Detected (NotDetected) Parainfluenza 1 (PCR) Not Detected (NotDetected) Parainfluenza 2 (PCR) Not Detected (NotDetected) Parainfluenza 3 (PCR) Not Detected (NotDetected) Parainfluenza 4 (PCR) Not Detected (NotDetected) RSV (PCR) Not Detected (NotDetected) Entero/Rhino (PCR) Not Detected (NotDetected) Administered Medications Discontinued Medications Sodium Chloride (Nss) 500 mls @ 999 mls/hr IV .Q31M ONE Stop: 06/20/24 01:31 Last Infusion: 06/20/24 01:46 Dose: Infused Documented By: Admin: 06/20/24 01:14 Dose: 999 mls/hr Documented By: JUANITA Acetaminophen (Ofirmev) 1,000 mg in 100 mls @ 400 mls/hr IV NOW STA Stop: 06/20/24 01:15 Last Infusion: 06/20/24 01:33 Dose: Infused Documented By: Admin: 06/20/24 01:14 Dose: 400 mls/hr Documented By: JUANITA Ceftriaxone Sodium (Rocephin) 2,000 mg in 50 mls @ 100 mls/hr IV NOW STA Stop: 06/20/24 02:06 Last Infusion: 06/20/24 02:27 Dose: Infused Documented By: Admin: 06/20/24 01:50 Dose: 100 mls/hr Documented By: JUANITA Ioversol (Optiray 320 100ml) 100 ml IV ONCE ONE Stop: 06/20/24 01:30 Last Admin: 06/20/24 01:29 Dose: 93 ml Documented By: THOM Ondansetron HCl (Ondansetron Inj 2 Mg/Ml 2 Ml Vial) 4 mg IV NOW STA Stop: 06/20/24 01:02 Last Admin: 06/20/24 01:15 Dose: 4 mg Documented By: JUANITA Imaging Data Radiologist's Impression: Abdomen/Pelvis CT 06/20/24 00:32 EXAM: CT abd pelvis IV con only CLINICAL HISTORY: mid abdominal pain; vomiting TECHNIQUE: CT of the abdomen and pelvis was performed, with the following protocol: axial images, and reconstructed coronal and sagittal images. Intravenous contrast was administered. 93 ML OPTIRAY 320 intravenous contrast was administered. One of the following dose reduction techniques was utilized for this exam: Automated exposure control, adjustment of the mA and/or kV according to patient size, and use of iterative reconstruction. DLP 1278.72 COMPARISON: 04/29/2024 FINDINGS: Sections of lower thorax show subpleural fibroatelectatic bands. Few subcentimetric left retrocrural nodes, largest measuring 6 mm in short axis diameter. Underlying metastasis needs to be excluded. Abdomen: Liver: Moderate dilatation of intrahepatic biliary radicals and common bile duct, proximal CBD measuring 20 mm in maximum caliber and showing abrupt change in luminal caliber in its distal portion. Liver is 17 cm in size. No focal lesions, cysts, or masses were identified. Gallbladder and Biliary System: The gallbladder is not visualized. Pancreas: Pancreatic head, body, and tail are visualized and appear normal in size and density. No pancreatic masses or calcifications were noted. Spleen: Normal in size, shape, and density. No splenic lesions or masses were identified. Kidneys and Adrenal Glands: Both kidneys are normal in size, shape, and position. No renal calculi or hydronephrosis. Small left renal cortical cysts. Left adrenal gland appears bulky with slightly nodular contour. Pelvis: Urinary Bladder: Normal in contour and wall thickness. Post hysterectomy status. No adnexal lesions. Vaginal pessary noted. Peritoneal and Retroperitoneal Structures: No free fluid or abnormal fluid collections were identified within the abdomen or pelvis. The abdominal aorta shows atherosclerotic changes with calcified plaques. Few subcentimetric left retrocrural nodes. Bowel: Uncomplicated colonic diverticulosis noted. Few fluid-filled prominent jejunal bowel loops on left side of abdomen, with maximum caliber of 24 mm. Possible ongoing enteritis. The visualized bowel loops are normal in caliber and appearance. The appendix is not well delineated. Bones and Soft Tissues: Degenerative changes in lumbar spine. Grade I anterolisthesis of L4 over L5 IMPRESSION: 1. Moderate dilatation of intrahepatic biliary radicals and common bile duct, proximal CBD measuring 20 mm in maximum caliber and showing abrupt change in luminal caliber in its distal portion. Further evaluation with MRCP if clinically warranted (stable). 2. Few fluid filled prominent jejunal bowel loops on left side of abdomen, with maximum caliber of 24 mm. Possible ongoing enteritis (less appreciated in this study compared to earlier one) 3. Uncomplicated colonic diverticulosis (stable). 4. Rest of the findings as detailed above Electronically signed by Johny Solis-05-2025 02:31 AM Cholangiopancreatography MRI 06/20/24 02:35 EXAM: MR MRCP CLINICAL HISTORY: dilatation of CBD. TECHNIQUE: Multiplanar multisequence magnetic resonance imaging of the abdomen without intravenous contrast. COMPARISON: CT abd pelvis 06/20/2024 was reviewed. FINDINGS: Liver: Normal size and morphology. Homogeneous signal intensity on T2-weighted images. No focal hepatic lesions. Gallbladder: Is not visualized. Bile Ducts: Moderate dilatation of intrahepatic biliary radicals with no internal filling defects or stones. Common bile duct, proximal CBD measuring 13 mm in maximum caliber and showing distal 3 filling defects ( 6 mm and 4.5 mm, 3 mm causing narrowing of the lumen ), the distal lumen of CBD is normal in caliber with no gross stricture, mural thickening or related masses. Pancreas: Normal size and contour. Homogeneous signal intensity on T2-weighted images. No masses or cystic lesions. Pancreatic Duct: Pancreatic duct is normal in caliber. No evidence of ductal dilatation or filling defects. Spleen: Normal size and appearance. Homogeneous signal intensity. Kidneys: Normal size, shape, and position of both kidneys. Homogeneous signal intensity on T2-weighted images. No renal stones, masses, or hydronephrosis. Small left renal cyst 9 mm. Adrenal Glands: Normal size and morphology bilaterally. No adrenal masses. Surrounding Structures: No evidence of free fluid or abnormal fluid collections in the abdomen. Normal appearance of the visualized bowel loops. Tiny reactive looking para-aortic and nia hepatis lymph nodes. A small rolling hiatus hernia. Right lower lobar atelectatic bands. IMPRESSION: 1. Choledocholithiasis with subsequent biliary obstruction, as described. 2. Further clinical and lab evaluation are advised. Electronically signed by Johny Solis 06-20-2024 05:30 AM Discharge Plan Visit Data Chief Complaint: Abdominal Pain Stated Complaint: BAD STOMACH PAINS,VOMITING ED Provider: Darlene Liu Discharge Problem: Nausea & vomiting, Abdominal pain, Acute UTI (urinary tract infection), Choledocholithiasis, Leukocytosis Patient Disposition: Transfer Acute Care Hospital Forms Stand Alone Forms: [facility] Prescriptions Prescriptions: No Action multivitamin Tablet 1 tab PO QAM Rx Instructions: with probiotic (Ollys brand) fexofenadine [Angela Allergy] 180 mg tablet 180 mg PO QAM cholecalciferol (vitamin D3) 50 mcg (2,000 unit) capsule 6,000 unit PO QAM clobetasol 0.05 % solution 1 applic topical DAILY PRN (Reason: Rash) ketoconazole 2 % shampoo 1 applic topical .2 times per week PRN (Reason: Rash) fluocinolone acetonide oil 0.01 % drops 1 drp otic (ear) DAILY PRN (Reason: Itchiness) fluticasone propion-salmeterol [Wixela Inhub] 250-50 mcg/dose blister with device 1 inh inhalation BID Qty: 60 5RF clotrimazole-betamethasone 1-0.05 % cream 1 applic topical BID 14 Days Qty: 45 0RF amlodipine 5 mg tablet 5 mg PO QAM nystatin 100,000 unit/gram cream 1 applic topical BID PRN (Reason: Rash) Referrals Referrals: Cristina Chilel DO [Primary Care Provider] -
[2024-06-20 01:13] LABS: Albumin Globulin Ratio 1.5 (0.9-2); Albumin Level 4.9 gm/dl (3.4-5.0); BUN Creatinine Ratio 27.5 (10-20); Bilirubin,Total 0.7 mg/dl (0.2-1.0); Calcium 10.2 mg/dl (8.6-10.3); Creatinine Clr Calc Pharmacy 79.6 ml/min; Globulin 3.3 gm/dl (2.5-4.0); Potassium 4.2 mmol/L (3.5-5.1); Total Protein 8.2 gm/dl (6.0-8.3)
[2024-06-20] MEDS: ACETAMINOPHEN 1,000 MG/100 ML VIAL IV STA (01:14)
[2024-06-20] MEDS: SODIUM CHLORIDE 0.9% 500 ML IV ONE ×2 (01:14→06:37)
[2024-06-20] MEDS: ONDANSETRON INJ 2 MG/ML 2 ML VIAL IV STA (01:15)
[2024-06-20] MEDS: OPTIRAY 320 100ml IV ONE (01:29)
[2024-06-20 01:33] LABS: Appearance Urine Turbid (Clear); Bacteria Urine Automated 2+ (None Seen); Bilirubin Urine Negative (Negative); Blood Urine Negative (Negative); Cast Urine Automated 0-2 /lpf (0-2); Color Urine Yellow; Epithelial Cell Urine Auto >20 /hpf (0-2); Glucose Urine UA Negative (Negative); Ketones Urine 2+ (Negative); Leukocyte Esterase Urine 3+ (Negative); Nitrite Urine Negative (Negative); Protein Urine Negative (Negative); RBC Urine Automated 0-2 /hpf (0-2); Urobilinogen Urine Negative (Negative); WBC Urine Automated 21-50 /hpf (0-5)
[2024-06-20] MEDS: cefTRIAXone SODIUM 2,000 MG/50 ML BAG IV STA (01:50)
--- NOTE | 2024-06-20 02:31 | CT Scan Report ---
EXAM: CT abd pelvis IV con only CLINICAL HISTORY: mid abdominal pain; vomiting TECHNIQUE: CT of the abdomen and pelvis was performed, with the following protocol: axial images, and reconstructed coronal and sagittal images. Intravenous contrast was administered. 93 ML OPTIRAY 320 intravenous contrast was administered. One of the following dose reduction techniques was utilized for this exam: Automated exposure control, adjustment of the mA and/or kV according to patient size, and use of iterative reconstruction. DLP 1278.72 COMPARISON: 04/29/2024 FINDINGS: Sections of lower thorax show subpleural fibroatelectatic bands. Few subcentimetric left retrocrural nodes, largest measuring 6 mm in short axis diameter. Underlying metastasis needs to be excluded. Abdomen: Liver: Moderate dilatation of intrahepatic biliary radicals and common bile duct, proximal CBD measuring 20 mm in maximum caliber and showing abrupt change in luminal caliber in its distal portion. Liver is 17 cm in size. No focal lesions, cysts, or masses were identified. Gallbladder and Biliary System: The gallbladder is not visualized. Pancreas: Pancreatic head, body, and tail are visualized and appear normal in size and density. No pancreatic masses or calcifications were noted. Spleen: Normal in size, shape, and density. No splenic lesions or masses were identified. Kidneys and Adrenal Glands: Both kidneys are normal in size, shape, and position. No renal calculi or hydronephrosis. Small left renal cortical cysts. Left adrenal gland appears bulky with slightly nodular contour. Pelvis: Urinary Bladder: Normal in contour and wall thickness. Post hysterectomy status. No adnexal lesions. Vaginal pessary noted. Peritoneal and Retroperitoneal Structures: No free fluid or abnormal fluid collections were identified within the abdomen or pelvis. The abdominal aorta shows atherosclerotic changes with calcified plaques. Few subcentimetric left retrocrural nodes. Bowel: Uncomplicated colonic diverticulosis noted. Few fluid-filled prominent jejunal bowel loops on left side of abdomen, with maximum caliber of 24 mm. Possible ongoing enteritis. The visualized bowel loops are normal in caliber and appearance. The appendix is not well delineated. Bones and Soft Tissues: Degenerative changes in lumbar spine. Grade I anterolisthesis of L4 over L5 IMPRESSION: 1. Moderate dilatation of intrahepatic biliary radicals and common bile duct, proximal CBD measuring 20 mm in maximum caliber and showing abrupt change in luminal caliber in its distal portion. Further evaluation with MRCP if clinically warranted (stable). 2. Few fluid filled prominent jejunal bowel loops on left side of abdomen, with maximum caliber of 24 mm. Possible ongoing enteritis (less appreciated in this study compared to earlier one) 3. Uncomplicated colonic diverticulosis (stable). 4. Rest of the findings as detailed above Electronically signed by Johny Solis 06-20-2024 02:31 AM
[2024-06-20 03:10] LABS: Prothrombin Time 11.2 Seconds (9.0-12.0)
[2024-06-20 05:22] LABS: Adenovirus PCR Not Detected (NotDetected); Bordetella parapertussis PCR Not Detected (NotDetected); Bordetella pertussis PCR Not Detected (NotDetected); Chlamydia pneumoniae PCR Not Detected (NotDetected); Coronavirus 229E PCR Not Detected (NotDetected); Coronavirus CoV-2 (COVID19)PCR Not Detected (NotDetected); Coronavirus HKU1 PCR Not Detected (NotDetected); Coronavirus NL63 PCR Not Detected (NotDetected); Coronavirus OC43PCR Not Detected (NotDetected); Human Metapneumovirus PCR Not Detected (NotDetected); Influenza A PCR Not Detected (NotDetected); Influenza B PCR Not Detected (NotDetected); Mycoplasma pneumoniae PCR Not Detected (NotDetected); Parainfluenza Virus 1 PCR Not Detected (NotDetected); Parainfluenza Virus 2 PCR Not Detected (NotDetected); Parainfluenza Virus 3 PCR Not Detected (NotDetected); Parainfluenza Virus 4 PCR Not Detected (NotDetected); Respiratory Syncytial VirusPCR Not Detected (NotDetected); Rhinovirus/Enterovirus PCR Not Detected (NotDetected)
--- NOTE | 2024-06-20 05:31 | Magnetic Resonance Report ---
EXAM: MR MRCP CLINICAL HISTORY: dilatation of CBD. TECHNIQUE: Multiplanar multisequence magnetic resonance imaging of the abdomen without intravenous contrast. COMPARISON: CT abd pelvis 06/20/2024 was reviewed. FINDINGS: Liver: Normal size and morphology. Homogeneous signal intensity on T2-weighted images. No focal hepatic lesions. Gallbladder: Is not visualized. Bile Ducts: Moderate dilatation of intrahepatic biliary radicals with no internal filling defects or stones. Common bile duct, proximal CBD measuring 13 mm in maximum caliber and showing distal 3 filling defects ( 6 mm and 4.5 mm, 3 mm causing narrowing of the lumen ), the distal lumen of CBD is normal in caliber with no gross stricture, mural thickening or related masses. Pancreas: Normal size and contour. Homogeneous signal intensity on T2-weighted images. No masses or cystic lesions. Pancreatic Duct: Pancreatic duct is normal in caliber. No evidence of ductal dilatation or filling defects. Spleen: Normal size and appearance. Homogeneous signal intensity. Kidneys: Normal size, shape, and position of both kidneys. Homogeneous signal intensity on T2-weighted images. No renal stones, masses, or hydronephrosis. Small left renal cyst 9 mm. Adrenal Glands: Normal size and morphology bilaterally. No adrenal masses. Surrounding Structures: No evidence of free fluid or abnormal fluid collections in the abdomen. Normal appearance of the visualized bowel loops. Tiny reactive looking para-aortic and nia hepatis lymph nodes. A small rolling hiatus hernia. Right lower lobar atelectatic bands. IMPRESSION: 1. Choledocholithiasis with subsequent biliary obstruction, as described. 2. Further clinical and lab evaluation are advised. Electronically signed by Johny Solis 06-20-2024 05:30 AM
[2024-06-20] MEDS: PIPERACILLIN/TAZOBACTAM 4.5 GM/100 ML BAG IV ONE (06:33)
[2024-06-20] MEDS: PIPERACILLIN/TAZOBACTAM 4.5 GM/100 ML BAG IV SCH (06:35)
--- NOTE | 2024-06-20 07:18 | Emergency Department Note ---
ED Visit Note The patient was taken signout from Dr. Liu at change of shift. In brief the patient is a 74-year-old woman who presented the emergency department for acute onset nausea and vomiting. CT abdomen pelvis demonstrated biliary ductal dilatation which appeared more progressed compared to April. This was further assessed on MRCP which suggested choledocholithiasis. LFTs including bilirubin are normal. WBC 16K with neutrophilia without left shift. Patient is afebrile with stable vitals signs. IV Zosyn administered. Patient was was accepted to [facility] with bed pending. However, became aware that QUINTIN Ewing is available. Case was d/w QUINTIN Ewing. He can perform ERCP tomorrow morning. Patient agrees with admission to our facility. [facility] transfer canceled. She appears comfortable without nausea or abdominal pain at this time. Repeat LFTs pending. Case was discussed with HAM Jones PAC, with HAM Thompson h ospitalist who will evaluate the patient for admission.
[2024-06-20] MEDS: SODIUM CHLORIDE 0.9% 500 ML IV SCH (07:50)
[2024-06-20 08:52] LABS: Albumin Globulin Ratio 1.4 (0.9-2); Albumin Level 3.9 gm/dl (3.4-5.0); BUN Creatinine Ratio 26.8 (10-20); Bilirubin Direct 0.1 mg/dl (0-0.2); Bilirubin,Total 0.7 mg/dl (0.2-1.0); Creatinine Clr Calc Pharmacy 98.1 ml/min; Globulin 2.8 gm/dl (2.5-4.0); Total Protein 6.7 gm/dl (6.0-8.3)
--- NOTE | 2024-06-20 08:56 | History & Physical Report ---
Date of Service June 20, 2024 Assessment & Plan (1) Choledocholithiasis: (2) Asymptomatic bacteriuria: (3) Hypertension: (4) Asthma: Kelle Henriquez is a 74F with a PMHx of asthma, HTN, SBO, Vit D deficency, cystocele and cholecystectomy who present with abdominal pain and vomiting starting the day prior. Recent admission 04/29-04/30 for SBO. On initial evaluation, respiratory biofire was negative, no LFT elevations, however imaging concerning for choledocholithiasis. Patient will be admitted for GI evaluation #Choledocholithiasis CT A/P: moderate dilatation of CBD (20mm in maximum caliber), fluid filled jejunal loops, possible ongoing enteritis. MRCP showed choledocholithiasis with subsequent biliary obstruction. GI consulted - ER reports discussing with Dr. Powers, plan for ERCP tomorrow Continue Zosyn LFTs WNL x2 - repeat in AM Keep NPO until seen by GI #Asymptomatic bacteruria UA concerning for UTI, patient denies any urinary symptoms. Urine culture pending At this time she will be covered with the above zosyn, but would defer additional abx given lack of symptoms. HTN - continue amlodipine Asthma - continue inhalers Dispo: obs to medical DVT ppx: SCDs CODE STATUS: Full Code History of Present Illness Chief Complaint: abdominal pain, vomiting Primary Care Provider: Cristina Chilel, DO Henriquez is a 74F with a PMHx of asthma, HTN, SBO, Vit D deficiency, cystocele, and cholecystectomy who present with abdominal pain and vomiting starting the day prior. Recent admission 04/29-04/30 for SBO with concerns for chrons disease but outpatient colonoscopy just showed one polyp. Has not had problem with nausea, vomiting or abdominal pain since discharge in April until she presented to the ER. Had hamburger and baked beans for lunch. Denies fevers or chills at home. Reports vomiting ~ 12 times prior to coming in. Denies pain currently, has not vomited since arrival to ER. Pain is worse in the area where she had her gallbladder out, this was in ~1980s. Denies any urinary symptoms. Bowels have been normal. Denies ETOH or smoking. ER course: Zosyn NSS 1L tylenol 1000mg IV CTX 2g Allergies Allergy/AdvReac Type Severity Reaction Status Date / Time cat dander Allergy Intermediate Itchy/Watery Verified 06/11/24 13:44 Eyes, Congestion weed pollen Allergy Intermediate Itchy/Watery Verified 06/11/24 13:44 Eyes, Congestion No Known Drug Allergies Allergy Unknown Unknown Verified 06/11/24 13:44 Home Medications Medication Instructions Recorded Confirmed Type fexofenadine 180 mg tablet 180 mg PO QAM 02/18/22 06/20/24 History (Angela Allergy) multivitamin 1 tab PO QAM 12/03/22 06/20/24 History cholecalciferol (vitamin D3) 50 6,000 unit PO QAM 06/07/23 06/20/24 History mcg (2,000 unit) capsule clobetasol 0.05 % scalp solution 1 applic topical DAILY PRN Rash 12/16/23 06/20/24 History ketoconazole 2 % shampoo 1 applic topical .2 times per week 12/16/23 06/20/24 History PRN Rash fluocinolone acetonide oil 0.01 % 1 drp otic (ear) DAILY PRN 12/20/23 06/20/24 History ear drops Itchiness amlodipine 5 mg tablet 5 mg PO QAM 05/21/24 06/20/24 History nystatin 100,000 unit/gram topical 1 applic topical BID PRN Rash 05/21/24 06/20/24 History cream clotrimazole-betamethasone 1 1 applic topical BID 2 weeks #45 06/11/24 06/20/24 Rx %-0.05 % topical cream grams fluticasone 250 mcg-salmeterol 50 1 inh inhalation BID #60 ea 06/11/24 06/20/24 Rx mcg/dose blistr powdr for inhalation (Wixela Inhub) amoxicillin 875 mg-potassium 1 tab PO BID 8 days #15 tabs 06/21/24 Rx clavulanate 125 mg tablet Past Med/Surg History Problem List (Updated 06/22/24 @ 08:51 by Nell Russell PA-C) Asymptomatic bacteriuria Leukocytosis (Acute) Choledocholithiasis (Acute) Acute UTI (urinary tract infection) (Acute) Abdominal pain (Acute) Nausea & vomiting (Acute) History of small bowel obstruction (04/2024) History of squamous cell carcinoma of skin Cystocele Hypertension Vitamin D deficiency Allergic rhinitis Asthma Medical History Abnormal CT of the abdomen Encounter for pre-operative examination Hx of migraines History of cystocele pessary use History of COVID-19 11/2023 "just couldn't swallow" resolved- denies any issues since then Hypertension History of squamous cell carcinoma shave biopsy Asthma PONV (postoperative nausea and vomiting) Small bowel obstruction (04/29/24) [facility] IP - reason for procedure Surgical History Hx of colonoscopy History of bunionectomy Bilateral History of bladder surgery bladder tack - as per patient - now uses pessary H/O hysterectomy with unilateral oophorectomy still w/ L ovary; d/t DUB Hx of cholecystectomy Family History Father Myocardial infarction, Onset Age: 72 Coronary heart disease Diabetes Mother No problems noted. Denies family history of Ovarian cancer Prostate cancer Breast cancer Colorectal cancer Social History Smoking Status: Never smoker Second Hand Exposure: Yes; Do You Dip or Chew Tobacco: No; Hx Alcohol Use: No Hx Substance Use: No Preferred Language: Scottish Communication Ability: Effective Visual Impairment: No Limitations Hearing Ability: Normal Automatic Equipment Technician Required: No Beliefs That Will Affect Care: None marital status: / marital status details: lost spouse (2019) Current Living Situation: Family Current Living Situation Comment: Grandson current occupational status: retired How many Children do You have: 3 Feels Safe at Home: Yes Childhood Exposure to Second-Hand Smoke: Yes Diet: regular Diet Comment: Regular caffeine: Yes (coffee) during the past year weight has: remained stable Dental Care, Regularly: Yes Physical Activity Frequency: Daily Seatbelt Use: always Sunscreen Use: No Assistive Devices: Glasses Review of Systems Review of Systems: All systems reviewed & are unremarkable except as noted in Subjective Physical Exam Physical Exam: General: NAD, VS as above Resp: normal respiratory effort, lungs clear to auscultation CV: RRR, no murmur, Abd: normal bowel sounds, non tender, no hepatosplenomegaly, soft Extremities: Moves all extremities, trace nonpitting LE edema Neuro: A&O x3, Skin: intact, no lesions noted Results & Data Results & Data Vital Signs (Past 12 Hours) Vital Signs Temp Pulse Pulse Resp BP BP Pulse Ox 06/20/24 07:00 69 16 148/81 H 97 06/20/24 05:06 61 06/20/24 05:00 70 17 166/86 H 98 06/20/24 03:00 68 17 130/85 98 06/20/24 01:21 70 18 139/79 94 06/20/24 01:21 48 L 18 96 06/20/24 01:14 70 06/20/24 00:23 97.9 F 89 20 136/89 95 O2 Del Method 06/20/24 07:00 Room Air 06/20/24 05:06 06/20/24 05:00 Room Air 06/20/24 03:00 Room Air 06/20/24 01:21 Room Air 06/20/24 01:21 Room Air 06/20/24 01:14 06/20/24 00:23 Room Air Laboratory Results cbc, chemistry, lfts, lactate, lipase reviewed Diagnostic Findings CT A/P reviewed MRCP reviewed Supervising Physician Co-Signing Physician Notes I personally saw and examined the patient. I independently reviewed the labs, EKG, imaging, problem list, medication list, past medical history and family his tory. I verified all anderson points and agree with Rocio William PA-C with the following exceptions and/or additions: 74 year old female presents to the ER with abdominal pain, now resolved. CBD d ilatation on CT and subsequent choledocholithiasis on MRCP. O/E HS RRR, no murmurs, Chest CTAB, Abdo SNT A/P Choledocholithiasis - NPO, consult gastroenterology for ERCP, IV Zosyn PG Care Time/CCT Total # of Minutes Spent Total Time Spent with Patient: Total time spent is greater than 50% in coordination of care (as documented) at patient's floor/unit and/or counseling patient: Coding Level of Care Code 00316 INT INP/OBS CARE 3/75MIN Diagnoses Choledocholithiasis K80.50 Asymptomatic bacteriuria R82.71 Hypertension I10 Asthma J45.909
--- NOTE | 2024-06-20 09:49 | Gastrointestinal Consultation ---
Date of Consultation June 20, 2024 Assessment & Plan (1) Choledocholithiasis: 74 year old female with history of asthma, HTN, SBO, Vit D deficiency, cystocele and cholecystectomy admitted through the ED w/ abd pain, nausea/vomiting - imaging concerning for biliary dilation w/ obstructive CBD stone. She is afebrile but has leukocytosis w/ WBC 16.67 w/ normal transaminases. Also has a + UA. Clear liquids today NPO after midnight Continue IV ABX w/ biliary coverage Plan for ERCP 06/21/24 Discussed risks, benefits, alternatives Antiemetics PRN Analgesia PRN OOB to chair/early ambulation encouraged I spent a total of 60 minutes on the date of service in review of patient's record, and previously obtained information in person and appropriate medical visit, discussion and education of plan, with patient and/or caregiver, placing orders for tests/referral/procedures as medically necessary and documentation of pertinent clinical information in patient's medical records for their visit today. We appreciate assistance in the management of any serological abnormality and corrections to include: hemoglobin >7, INR <2, platelets >50,000, potassium levels >3.5 but <5.3, and sodium levels within 5 points of the reference range prior to endoscopic evaluation. Thank you for allowing us to participate in the care of this patient. Please call with any acute changes, questions or concerns. Please see addendum below with additional recommendation from my supervising physician. Supervising Physician Co-Signing Physician Notes I saw and examined this patient with our nurse practitioner and agree with her assessment and plan. Clinical presentation symptoms and imaging consistent with choledocholithiasis as cause for her abdominal pain. No signs of cholangitis at the present time. Liver enzymes mildly elevated. Abdominal pain is resolved. This may explain her symptoms from her last admission in April. Will proceed with ERCP with stone extraction in AM. Agree with antibiotic therapy. History of Present Illness Reason for Consultation: CBD stone History of Present Illness 74 year old female with history of asthma, HTN, SBO, Vit D deficiency, cystocele and cholecystectomy admitted through the ED w/ abd pain, nausea/vomiting - GI was asked to evaluate for a CBD stone. Notes pain started rather acutely yesterday after lunch. Associated with nausea/vomiting. [place] nearly identical to pain she had at time of CC[facility] years ago. Presented to the ED for eval of pain. Pain has been controlled/improved w/ analgesia. Nausea/vomiting resolved. She tells me she is somewhat hungry. WBC 16.67 Tbili 0.7 AST 18 ALT 13 ALKP 88 Lipase 20 MRCP 2024:Choledocholithiasis with subsequent biliary obstruction CTAP 2024: Moderate dilatation of intrahepatic biliary radicals and common bile duct, proximal CBD measuring 20 mm in maximum caliber and showing abrupt change in luminal caliber in its distal portion. The gallbladder is not visualized. Allergies Allergy/AdvReac Type Severity Reaction Status Date / Time cat dander Allergy Intermediate Itchy/Watery Verified 06/11/24 13:44 Eyes, Congestion weed pollen Allergy Intermediate Itchy/Watery Verified 06/11/24 13:44 Eyes, Congestion No Known Drug Allergies Allergy Unknown Unknown Verified 06/11/24 13:44 Home Medications Medication Instructions Recorded Confirmed Type fexofenadine 180 mg tablet 180 mg PO QAM 02/18/22 06/20/24 History (Angela Allergy) multivitamin 1 tab PO QAM 12/03/22 06/20/24 History cholecalciferol (vitamin D3) 50 6,000 unit PO QAM 06/07/23 06/20/24 History mcg (2,000 unit) capsule clobetasol 0.05 % scalp solution 1 applic topical DAILY PRN Rash 12/16/23 06/20/24 History ketoconazole 2 % shampoo 1 applic topical .2 times per week 12/16/23 06/20/24 History PRN Rash fluocinolone acetonide oil 0.01 % 1 drp otic (ear) DAILY PRN 12/20/23 06/20/24 History ear drops Itchiness amlodipine 5 mg tablet 5 mg PO QAM 05/21/24 06/20/24 History nystatin 100,000 unit/gram topical 1 applic topical BID PRN Rash 05/21/24 06/20/24 History cream clotrimazole-betamethasone 1 1 applic topical BID 2 weeks #45 06/11/24 06/20/24 Rx %-0.05 % topical cream grams fluticasone 250 mcg-salmeterol 50 1 inh inhalation BID #60 ea 06/11/24 06/20/24 Rx mcg/dose blistr powdr for inhalation (Adrianaxela Inhub) Patient History Medical History Abnormal CT of the abdomen Encounter for pre-operative examination Hx of migraines History of cystocele History of COVID-19 Hypertension History of squamous cell carcinoma Asthma PONV (postoperative nausea and vomiting) Small bowel obstruction (04/29/24) Surgical History Hx of colonoscopy History of bunionectomy History of bladder surgery H/O hysterectomy with unilateral oophorectomy Hx of cholecystectomy Family History Father Myocardial infarction, Onset Age: 72 Coronary heart disease Diabetes Mother No problems noted. Denies family history of Ovarian cancer Prostate cancer Breast cancer Colorectal cancer Social History Smoking Status: Never smoker Second Hand Exposure: No; Do You Dip or Chew Tobacco: No; Hx Alcohol Use: No Hx Substance Use: No Preferred Language: Sinhala Communication Ability: Effective Visual Impairment: No Limitations Hearing Ability: Normal Therapist Respiratory Required: No Beliefs That Will Affect Care: None marital status: / marital status details: lost spouse (2019) Current Living Situation: Family Current Living Situation Comment: Grandson current occupational status: retired How many Children do You have: 3 Feels Safe at Home: Yes Childhood Exposure to Second-Hand Smoke: Yes Diet: regular Diet Comment: Regular caffeine: Yes (coffee) during the past year weight has: remained stable Dental Care, Regularly: Yes Physical Activity Frequency: Daily Seatbelt Use: always Sunscreen Use: No Assistive Devices: Glasses Review of Systems Review of Systems: All other findings negative except as noted in HPI. Physical Exam Constitutional: WD/WN, vitals as above Respiratory: normal respiratory effort, lungs clear to auscultation Cardiovascular: Rate/Rhythm: regular rate and regular rhythm Gastrointestinal (Abdomen): normal bowel sounds, soft, nontender, no hepatosplenomegaly Skin: no rashes, warm and dry Results & Data Vital Signs (Past 12 Hours) Vital Signs Temp Pulse Pulse Resp BP BP Pulse Ox 06/20/24 09:07 71 06/20/24 07:00 69 16 148/81 H 97 06/20/24 05:06 61 06/20/24 05:00 70 17 166/86 H 98 06/20/24 03:00 68 17 130/85 98 06/20/24 01:21 70 18 139/79 94 06/20/24 01:21 48 L 18 96 06/20/24 01:14 70 06/20/24 00:23 97.9 F 89 20 136/89 95 O2 Del Method 06/20/24 09:07 06/20/24 07:00 Room Air 06/20/24 05:06 06/20/24 05:00 Room Air 06/20/24 03:00 Room Air 06/20/24 01:21 Room Air 06/20/24 01:21 Room Air 06/20/24 01:14 06/20/24 00:23 Room Air Laboratory Results 06/20/24 06/20/24 06/20/24 Range/Units 08:13 04:14 02:25 WBC (4.8-10.8) K/ul RBC (4.20-5.40) M/uL Hgb (12.0-16.0) g/dl Hct (37.0-47.0) % MCV (80.0-100.0) fL MCH (25.0-34.0) pg MCHC (32.0-36.0) g/dL RDW Std Deviation (36.4-46.3) fL RDW Coeff of [place] (11.5-14.5) % Plt Count (130-400) K/uL MPV (9.4-12.4) fL Immature Gran % (Auto) % Neut % (Auto) % Lymph % (Auto) % [place] % (Auto) % Eos % (Auto) % Baso % (Auto) % Neut # (Auto) (1.40-6.50) K/uL Lymph # (Auto) (1.20-3.40) K/uL [place] # (Auto) (0.11-0.59) K/uL Eos # (Auto) (0.00-0.50) K/uL Baso # (Auto) (0.00-0.20) K/uL Immature Gran # (Auto) (0.01-0.20) K/uL PT 11.2 INR 1.0 Sodium 141 (136-145) mmol/L Potassium 4.0 (3.5-5.1) mmol/L Chloride 105 (98-107) mmol/L Carbon Dioxide 31 (21-32) mmol/L Anion Gap 5 (3-11) BUN 15 (6-23) mg/dl Creatinine 0.56 L (0.6-1.2) mg/dl Est Cr Clr Drug Dosing 98.1 ml/min eGFR 96.91 BUN/Creatinine Ratio 26.8 H (10-20) Glucose 99 (70-99(Fasting)) mg/dl Lactate (0.4-2.0) mmol/L Calcium 9.0 (8.6-10.3) mg/dl Total Bilirubin 0.7 (0.2-1.0) mg/dl Direct Bilirubin 0.1 (0-0.2) mg/dl AST 18 (13-39) U/L ALT 13 (7-52) U/L Alkaline Phosphatase 88 (34-104) U/L Total Protein 6.7 (6.0-8.3) gm/dl Albumin 3.9 (3.4-5.0) gm/dl Globulin 2.8 (2.5-4.0) gm/dl Albumin/Globulin Ratio 1.4 (0.9-2) Lipase 20 (11-82) U/L Urine Color Urine Appearance (Clear) Urine pH (4.5-7.5) Ur Specific [place] (1.000-1.030) Urine Protein (Negative) Urine Glucose (UA) (Negative) Urine Ketones (Negative) Urine Blood (Negative) Urine Nitrite (Negative) Urine Bilirubin (Negative) Urine Urobilinogen (Negative) Ur Leukocyte Esterase (Negative) Urine WBC (Auto) (0-5) /hpf Urine RBC (Auto) (0-2) /hpf U Hyaline Cast (Auto) (0-2) /lpf U Epithel Cells (Auto) (0-2) /hpf Urine Bacteria (Auto) (None Seen) Adenovirus (PCR) Not Detected (NotDetected) B. pertussis DNA (PCR) Not Detected (NotDetected) B.parapertussis DNA PCR Not Detected (NotDetected) C. pneumoniae DNA (PCR) Not Detected (NotDetected) Coronavirus OC43 (PCR) Not Detected (NotDetected) Coronavirus HKU1 (PCR) Not Detected (NotDetected) Coronavirus 229E (PCR) Not Detected (NotDetected) SARS-CoV-2 (PCR) Not Detected (NotDetected) Coronavirus NL63 (PCR) Not Detected (NotDetected) Human Metapneumovir PCR Not Detected (NotDetected) Influenza Type A (PCR) Not Detected (NotDetected) Influenza Type B (PCR) Not Detected (NotDetected) M. pneumoniae (PCR) Not Detected (NotDetected) Parainfluenza 1 (PCR) Not Detected (NotDetected) Parainfluenza 2 (PCR) Not Detected (NotDetected) Parainfluenza 3 (PCR) Not Detected (NotDetected) Parainfluenza 4 (PCR) Not Detected (NotDetected) RSV (PCR) Not Detected (NotDetected) Entero/Rhino (PCR) Not Detected (NotDetected) 06/20/24 06/20/24 06/20/24 Range/Units 01:10 01:07 00:33 WBC 16.67 H (4.8-10.8) K/ul RBC 5.44 H (4.20-5.40) M/uL Hgb 15.0 (12.0-16.0) g/dl Hct 45.2 (37.0-47.0) % MCV 83.1 (80.0-100.0) fL MCH 27.6 (25.0-34.0) pg MCHC 33.2 (32.0-36.0) g/dL RDW Std Deviation 46.0 (36.4-46.3) fL RDW Coeff of [place] 15.3 H (11.5-14.5) % Plt Count 437 H (130-400) K/uL MPV 11.1 (9.4-12.4) fL Immature Gran % (Auto) 0.2 % Neut % (Auto) 88.6 % Lymph % (Auto) 7.0 % [place] % (Auto) 3.5 % Eos % (Auto) 0.2 % Baso % (Auto) 0.5 % Neut # (Auto) 14.78 H (1.40-6.50) K/uL Lymph # (Auto) 1.16 L (1.20-3.40) K/uL [place] # (Auto) 0.58 (0.11-0.59) K/uL Eos # (Auto) 0.03 (0.00-0.50) K/uL Baso # (Auto) 0.08 (0.00-0.20) K/uL Immature Gran # (Auto) 0.04 (0.01-0.20) K/uL PT Cancelled INR Cancelled Sodium 139 (136-145) mmol/L Potassium 4.2 (3.5-5.1) mmol/L Chloride 103 (98-107) mmol/L Carbon Dioxide 29 (21-32) mmol/L Anion Gap 7 (3-11) BUN 19 (6-23) mg/dl Creatinine 0.69 (0.6-1.2) mg/dl Est Cr Clr Drug Dosing 79.6 ml/min eGFR 92.15 BUN/Creatinine Ratio 27.5 H (10-20) Glucose 139 H (70-99(Fasting)) mg/dl Lactate 1.3 (0.4-2.0) mmol/L Calcium 10.2 (8.6-10.3) mg/dl Total Bilirubin 0.7 (0.2-1.0) mg/dl Direct Bilirubin (0-0.2) mg/dl AST 22 (13-39) U/L ALT 16 (7-52) U/L Alkaline Phosphatase 111 H (34-104) U/L Total Protein 8.2 (6.0-8.3) gm/dl Albumin 4.9 (3.4-5.0) gm/dl Globulin 3.3 (2.5-4.0) gm/dl Albumin/Globulin Ratio 1.5 (0.9-2) Lipase 18 (11-82) U/L Urine Color Yellow Urine Appearance Turbid A (Clear) Urine pH 7.0 (4.5-7.5) Ur Specific [place] 1.020 (1.000-1.030) Urine Protein Negative (Negative) Urine Glucose (UA) Negative (Negative) Urine Ketones 2+ H (Negative) Urine Blood Negative (Negative) Urine Nitrite Negative (Negative) Urine Bilirubin Negative (Negative) Urine Urobilinogen Negative (Negative) Ur Leukocyte Esterase 3+ H (Negative) Urine WBC (Auto) 21-50 H (0-5) /hpf Urine RBC (Auto) 0-2 (0-2) /hpf U Hyaline Cast (Auto) 0-2 (0-2) /lpf U Epithel Cells (Auto) >20 H (0-2) /hpf Urine Bacteria (Auto) 2+ H (None Seen) Adenovirus (PCR) (NotDetected) B. pertussis DNA (PCR) (NotDetected) B.parapertussis DNA PCR (NotDetected) C. pneumoniae DNA (PCR) (NotDetected) Coronavirus OC43 (PCR) (NotDetected) Coronavirus HKU1 (PCR) (NotDetected) Coronavirus 229E (PCR) (NotDetected) SARS-CoV-2 (PCR) (NotDetected) Coronavirus NL63 (PCR) (NotDetected) Human Metapneumovir PCR (NotDetected) Influenza Type A (PCR) (NotDetected) Influenza Type B (PCR) (NotDetected) M. pneumoniae (PCR) (NotDetected) Parainfluenza 1 (PCR) (NotDetected) Parainfluenza 2 (PCR) (NotDetected) Parainfluenza 3 (PCR) (NotDetected) Parainfluenza 4 (PCR) (NotDetected) RSV (PCR) (NotDetected) Entero/Rhino (PCR) (NotDetected) PG Care Time/CCT Total # of Minutes Spent Total Time Spent with Patient: Total time spent is greater than 50% in coordination of care (as documented) at patient's floor/unit and/or counseling patient: Coding Level of Care Code 61194 INT INP/OBS CARE MIN Diagnoses Choledocholithiasis K80.50
[2024-06-20] MEDS: FLUTICASONE/VILANTEROL 200/25MCG 14 PUFFS/INHALER INH SCH (11:52)
[2024-06-20] MEDS ORDERED: oxyCODONE HCL IR 5 MG TAB (IMMEDIATE RELEASE) PO PRN (15:53)
[2024-06-20] MEDS ORDERED: HYDROmorphone INJ 0.5 MG/0.5 ML SYR IV PRN ×2 (15:53)
[2024-06-20] MEDS: ACETAMINOPHEN 325 MG TAB PO PRN (16:01)
[2024-06-20] MEDS: CLOTRIMAZOLE/BETAMETHASONE CR 15 GM TUBE EXT SCH (19:55)
[2024-06-20] MEDS: ONDANSETRON INJ 2 MG/ML 2 ML VIAL IV PRN (21:43)
--- NOTE | 2024-06-20 22:03 | Electrocardiogram Report ---
Test Reason : Blood Pressure : */* mmHG Vent. Rate : 74 BPM Atrial Rate : 74 BPM P-R Int : 194 ms QRS Dur : 76 ms QT Int : 422 ms P-R-T Axes : 58 -4 31 degrees QTcB Int : 468 ms Normal sinus rhythm Possible Left atrial enlargement Cannot rule out Anterior infarct , age undetermined Abnormal ECG No previous ECGs available Confirmed by Lucas Cook ([id number]) on 06/20/2024 10:03:13 PM Referred By: REFERRED SELF Confirmed By: Lucas Cook
[2024-06-21 06:33] LABS: Albumin Globulin Ratio 1.4 (0.9-2); BUN Creatinine Ratio 17.7 (10-20); Bilirubin,Total 0.8 mg/dl (0.2-1.0); Calcium 9.3 mg/dl (8.6-10.3); Creatinine Clr Calc Pharmacy 89.2 ml/min; Globulin 2.9 gm/dl (2.5-4.0); Potassium 4.1 mmol/L (3.5-5.1); Total Protein 6.9 gm/dl (6.0-8.3)
[2024-06-21 06:39] LABS: Basophils # (auto) 0.05 K/uL (0.00-0.20); Basophils % (auto) 0.9 %; Eosinophils % (auto) 1.7 %; Hemoglobin 13.2 g/dl (12.0-16.0); Immature Granulocytes # (auto) 0.01 K/uL (0.01-0.20); Immature Granulocytes % (auto) 0.2 %; Lymphocytes # (auto) 1.61 K/uL (1.20-3.40); Lymphocytes % (auto) 27.9 %; Mean Corpuscular Hemoglobin 27.3 pg (25.0-34.0); Mean Corpuscular Volume 82.8 fL (80.0-100.0); Mean Platelet Volume 10.6 fL (9.4-12.4); Monocytes % (auto) 8.7 %; Neutrophils % (auto) 60.6 %; Platelet Count 360 K/uL (130-400); RDW Coefficient of Variation 15.3 % (11.5-14.5); RDW Standard Deviation 46.3 fL (36.4-46.3); Red Blood Count 4.83 M/uL (4.20-5.40); White Blood Count 5.77 K/ul (4.8-10.8)
--- NOTE | 2024-06-21 07:46 | Hospitalist Progress Note ---
Date of Service June 21, 2024 Assessment & Plan (1) Choledocholithiasis: (2) Asymptomatic bacteriuria: (3) Hypertension: (4) Asthma: Plan Florence is a 74F with a PMHx of asthma, HTN, SBO, Vit D deficiency, cystocele and cholecystectomy who present with abdominal pain and vomiting starting 3/4 Recent admission 04/29-04/30 for SBO, hx cholecystectomy in the past. Strong family hx Crohns in sister/daughter and imaging at that time w/ transition point distal ileum suggestion of possible IBD and underwent c-scope w/ Dr Case (pathology not suggestive of crohn's at that time) Biofire negative, LFTs wnl however imaging w/ concerns choledocholithiasis and admitted for eval/GI consultation. WBC elevation on 16k #Choledocholithiasis CTAP concerning for CHOLEDOCHOLITHIASIS w/ moderate dilatation of CBD (20mm), fluid filled jejunal loops with possible ongoing enteritis MRCP showed choledocholithiasis with subsequent biliary obstruction Zosyn IV - can plan for course Augmentin at dc pending ERCP results/course x 10d WBC normalized NPO GI plan for ERCP today IVF w/ LR @ 80cc/hr added Pain control/antiemetics as needed -- can add PO pain meds once able to advance diet (not having much pain now). Phenergan for nausea if needed *has used in the past* Monitor labs/exam in AM, f/u ERCP results planned #Asymptomatic bacteruria -UA concerning for UTI, patient denies any urinary symptoms. Urine cx contaminant and as above covered w/ Zosyn abx HTN - continue amlodipine , suspect trace LE edema 2nd to use, no issues/monitor. SCDs ordered/consider chemoproph pending inpatient stay Asthma - continue inhalers , on RA/lung stable on exam DVT proph: SCDs for now, ambulation to be encouraged. Chemoproph can be added pending course, deferred for ERCP to prevent bleeding risk Dispo: ERCP for today -- notable patient is hopeful for dc 06/22 and reports she has a basketball game she would like to get to. If pain/nausea/labs and exam stable pending ERCP can consider dc on Augmentin to complete course with GI/PCP follow-up Updated daughter Cielo at bedside 06/21 (DIRECTOR OF SOFTWARE ENGINEERING at [employer]) Admission and Anticipated Discharge Date Admission Date: June 20, 2024 Supervising Physician Co-Signing Physician Notes The patient was not seen by me. The chart was reviewed. Case discussed with BELKIS Rahman. Agree with assessment and plan Subjective Eval this morning, did have some nausea but no vomiting. Reports feeling much better since starting the IV fluids and antibiotics. Is NPO for ERCP today, possible dc tomorrow pending status/findings on continued antibiotics pending course vs another day. No CP/SOB. Discussed Phenergan if needed for any further nausea - reports she used this in the past for migraines w/ great success and does know can make her sleepy but will be available if needed. Questions/concerns addressed at this time. After left room, saw GEAR HOBBER OPERATOR Cielo germain. Is patient's daughter. Updated on plan and discussed to alert/message me with any issues to be able to address. Physical Exam Physical Exam: General: 74yo female sitting up in bed, NAD HEENT: head atraumatic, normocephalic, mm slightly dry, trachea midline Resp: normal respiratory effort, lungs clear to auscultation CV: RRR, no murmur, no significant pitting edema or calf tenderness GI: +BS, slight distension but no overt tenderness/guarding/rebound : no [place] MSK/Neuro: nonfocal, not confused, answering questions appropriately Psych: AOx3, cooperative with exam Results & Data Results & Data Vital Signs (Past 12 Hours) Vital Signs Temp Pulse Resp BP Pulse Ox O2 Del Method 06/21/24 07:02 36.5 C 65 16 137/79 97 Room Air Laboratory Results 06/21/24 Range/Units 05:49 WBC 5.77 (4.8-10.8) K/ul RBC 4.83 (4.20-5.40) M/uL Hgb 13.2 (12.0-16.0) g/dl Hct 40.0 (37.0-47.0) % MCV 82.8 (80.0-100.0) fL MCH 27.3 (25.0-34.0) pg MCHC 33.0 (32.0-36.0) g/dL RDW Std Deviation 46.3 (36.4-46.3) fL RDW Coeff of [place] 15.3 H (11.5-14.5) % Plt Count 360 (130-400) K/uL MPV 10.6 (9.4-12.4) fL Immature Gran % (Auto) 0.2 % Neut % (Auto) 60.6 % Lymph % (Auto) 27.9 % [place] % (Auto) 8.7 % Eos % (Auto) 1.7 % Baso % (Auto) 0.9 % Neut # (Auto) 3.50 (1.40-6.50) K/uL Lymph # (Auto) 1.61 (1.20-3.40) K/uL [place] # (Auto) 0.50 (0.11-0.59) K/uL Eos # (Auto) 0.10 (0.00-0.50) K/uL Baso # (Auto) 0.05 (0.00-0.20) K/uL Immature Gran # (Auto) 0.01 (0.01-0.20) K/uL Sodium 140 (136-145) mmol/L Potassium 4.1 (3.5-5.1) mmol/L Chloride 105 (98-107) mmol/L Carbon Dioxide 30 (21-32) mmol/L Anion Gap 5 (3-11) BUN 11 (6-23) mg/dl Creatinine 0.62 (0.6-1.2) mg/dl Est Cr Clr Drug Dosing 89.2 ml/min eGFR 94.56 BUN/Creatinine Ratio 17.7 (10-20) Glucose 109 H (70-99(Fasting)) mg/dl Calcium 9.3 (8.6-10.3) mg/dl Total Bilirubin 0.8 (0.2-1.0) mg/dl AST 17 (13-39) U/L ALT 13 (7-52) U/L Alkaline Phosphatase 88 (34-104) U/L Total Protein 6.9 (6.0-8.3) gm/dl Albumin 4.0 (3.4-5.0) gm/dl Globulin 2.9 (2.5-4.0) gm/dl Albumin/Globulin Ratio 1.4 (0.9-2) Diagnostic Findings Abdomen/Pelvis CT 06/20/24 00:32 EXAM: CT abd pelvis IV con only CLINICAL HISTORY: mid abdominal pain; vomiting TECHNIQUE: CT of the abdomen and pelvis was performed, with the following protocol: axial images, and reconstructed coronal and sagittal images. Intravenous contrast was administered. 93 ML OPTIRAY 320 intravenous contrast was administered. One of the following dose reduction techniques was utilized for this exam: Automated exposure control, adjustment of the mA and/or kV according to patient size, and use of iterative reconstruction. DLP 1278.72 COMPARISON: 04/29/2024 FINDINGS: Sections of lower thorax show subpleural fibroatelectatic bands. Few subcentimetric left retrocrural nodes, largest measuring 6 mm in short axis diameter. Underlying metastasis needs to be excluded. Abdomen: Liver: Moderate dilatation of intrahepatic biliary radicals and common bile duct, proximal CBD measuring 20 mm in maximum caliber and showing abrupt change in luminal caliber in its distal portion. Liver is 17 cm in size. No focal lesions, cysts, or masses were identified. Gallbladder and Biliary System: The gallbladder is not visualized. Pancreas: Pancreatic head, body, and tail are visualized and appear normal in size and density. No pancreatic masses or calcifications were noted. Spleen: Normal in size, shape, and density. No splenic lesions or masses were identified. Kidneys and Adrenal Glands: Both kidneys are normal in size, shape, and position. No renal calculi or hydronephrosis. Small left renal cortical cysts. Left adrenal gland appears bulky with slightly nodular contour. Pelvis: Urinary Bladder: Normal in contour and wall thickness. Post hysterectomy status. No adnexal lesions. Vaginal pessary noted. Peritoneal and Retroperitoneal Structures: No free fluid or abnormal fluid collections were identified within the abdomen or pelvis. The abdominal aorta shows atherosclerotic changes with calcified plaques. Few subcentimetric left retrocrural nodes. Bowel: Uncomplicated colonic diverticulosis noted. Few fluid-filled prominent jejunal bowel loops on left side of abdomen, with maximum caliber of 24 mm. Possible ongoing enteritis. The visualized bowel loops are normal in caliber and appearance. The appendix is not well delineated. Bones and Soft Tissues: Degenerative changes in lumbar spine. Grade I anterolisthesis of L4 over L5 IMPRESSION: 1. Moderate dilatation of intrahepatic biliary radicals and common bile duct, proximal CBD measuring 20 mm in maximum caliber and showing abrupt change in luminal caliber in its distal portion. Further evaluation with MRCP if clinically warranted (stable). 2. Few fluid filled prominent jejunal bowel loops on left side of abdomen, with maximum caliber of 24 mm. Possible ongoing enteritis (less appreciated in this study compared to earlier one) 3. Uncomplicated colonic diverticulosis (stable). 4. Rest of the findings as detailed above Electronically signed by Johny Solis 06-20-2024 02:31 AM Cholangiopancreatography MRI 06/20/24 02:35 EXAM: MR MRCP CLINICAL HISTORY: dilatation of CBD. TECHNIQUE: Multiplanar multisequence magnetic resonance imaging of the abdomen without intravenous contrast. COMPARISON: CT abd pelvis 06/20/2024 was reviewed. FINDINGS: Liver: Normal size and morphology. Homogeneous signal intensity on T2-weighted images. No focal hepatic lesions. Gallbladder: Is not visualized. Bile Ducts: Moderate dilatation of intrahepatic biliary radicals with no internal filling defects or stones. Common bile duct, proximal CBD measuring 13 mm in maximum caliber and showing distal 3 filling defects ( 6 mm and 4.5 mm, 3 mm causing narrowing of the lumen ), the distal lumen of CBD is normal in caliber with no gross stricture, mural thickening or related masses. Pancreas: Normal size and contour. Homogeneous signal intensity on T2-weighted images. No masses or cystic lesions. Pancreatic Duct: Pancreatic duct is normal in caliber. No evidence of ductal dilatation or filling defects. Spleen: Normal size and appearance. Homogeneous signal intensity. Kidneys: Normal size, shape, and position of both kidneys. Homogeneous signal intensity on T2-weighted images. No renal stones, masses, or hydronephrosis. Small left renal cyst 9 mm. Adrenal Glands: Normal size and morphology bilaterally. No adrenal masses. Surrounding Structures: No evidence of free fluid or abnormal fluid collections in the abdomen. Normal appearance of the visualized bowel loops. Tiny reactive looking para-aortic and nia hepatis lymph nodes. A small rolling hiatus hernia. Right lower lobar atelectatic bands. IMPRESSION: 1. Choledocholithiasis with subsequent biliary obstruction, as described. 2. Further clinical and lab evaluation are advised. Electronically signed by Johny Solis 06-20-2024 05:30 AM PG Care Time/CCT Total # of Minutes Spent Total Time Spent with Patient: Total time spent is greater than 50% in coordination of care (as documented) at patient's floor/unit and/or counseling patient: Coding Level of Care Code 04751 SUB INP/OBS CARE 3/50MIN Diagnoses Choledocholithiasis K80.50 Asymptomatic bacteriuria R82.71 Hypertension I10 Asthma J45.909
[2024-06-21] MEDS: amLODIPine BESYLATE 5 MG TAB PO SCH (08:14)
[2024-06-21] MEDS: FEXOFENADINE HCL 180 MG TAB PO SCH (08:14)
[2024-06-21] MEDS: LACTATED RINGER'S 1,000 ML IV SCH (08:15)
--- NOTE | 2024-06-21 08:56 | Gastroenterology Progress Note ---
Date of Service June 21, 2024 Assessment & Plan (1) Choledocholithiasis: Plan: 74 year old female with history of asthma, HTN, SBO, Vit D deficiency, cystocele and cholecystectomy admitted through the ED w/ abd pain, nausea/vomiting - imaging concerning for biliary dilation w/ obstructive CBD stone. She is afebrile w/o leukocytosis w/ normal transaminases. NPO for ERCP today Continue IV ABX w/ biliary coverage Antiemetics PRN Analgesia PRN OOB to chair/early ambulation encouraged We appreciate assistance in the management of any serological abnormality and corrections to include: hemoglobin >7, INR <2, platelets >50,000, potassium levels >3.5 but <5.3, and sodium levels within 5 points of the reference range prior to endoscopic evaluation. Thank you for allowing us to participate in the care of this patient. Please call with any acute changes, questions or concerns. Please see addendum below with additional recommendation from my supervising physician. Admission and Anticipated Discharge Date Admission Date: June 20, 2024 Supervising Physician Co-Signing Physician Notes I saw and examined this patient with our nurse practitioner and agree with her assessment and plan. Mild nausea today no vomiting no abdominal pain. LFTs stable. Proceed with ERCP today. Subjective Return of nausea. No vomiting. No pain. Remains NPO for ERCP Review of Systems Review of Systems: All other findings negative except as noted in HPI. Physical Exam Constitutional: WD/WN, vitals as above Respiratory: normal respiratory effort, lungs clear to auscultation Cardiovascular: Rate/Rhythm: regular rate and regular rhythm Gastrointestinal (Abdomen): normal bowel sounds, soft, nontender, no hepatosplenomegaly Skin: no rashes, warm and dry Results & Data Results & Data Vital Signs (Past 12 Hours) Vital Signs Temp Pulse Resp BP Pulse Ox O2 Del Method 06/21/24 07:02 97.7 F 65 16 137/79 97 Room Air PG Care Time/CCT Total # of Minutes Spent Total Time Spent with Patient: Total time spent is greater than 50% in coordination of care (as documented) at patient's floor/unit and/or counseling patient: Coding Level of Care Code None Diagnoses Choledocholithiasis K80.50
[2024-06-21] MEDS ORDERED: PROMETHAZINE 6.25 MG/50.25 ML BAG IV PRN (09:35)
[2024-06-21] MEDS ORDERED: fentaNYL citrate PF 100 MCG/2 ML VIAL ONE (14:51)
[2024-06-21] MEDS ORDERED: ROCURONIUM BROMIDE 10 MG/ML 5 ML VIAL IV ONE (14:51)
[2024-06-21] MEDS ORDERED: PROPOFOL IV EMULSION 10 MG/ML 20 ML VIAL IV ONE (14:51)
[2024-06-21] MEDS ORDERED: LIDOCAINE 2% 2 ML VIAL/AMP(20MG/ML) INFIL ONE (14:51)
[2024-06-21] MEDS ORDERED: SUCCINYLCHOLINE CHLORIDE 20 MG/ML 10 ML VIAL IV ONE (14:51)
[2024-06-21] MEDS ORDERED: ONDANSETRON INJ 2 MG/ML 2 ML VIAL ONE (14:51)
[2024-06-21] MEDS ORDERED: ONDANSETRON INJ 2 MG/ML 2 ML VIAL IV PRN (15:05)
[2024-06-21] MEDS ORDERED: HYDROmorphone INJ 1 MG/ML SYRINGE IV PRN (15:05)
[2024-06-21] MEDS ORDERED: fentaNYL citrate PF 100 MCG/2 ML VIAL IV PRN (15:05)
[2024-06-21] MEDS ORDERED: ePHEDrine sulfate 50 MG/ML AMP IV PRN (15:05)
[2024-06-21] MEDS ORDERED: ATROPINE SULFATE 0.1 MG/ML 10ML SYR IV PRN (15:05)
--- NOTE | 2024-06-21 15:08 | Anesthesiology Consultation ---
Date of Service June 21, 2024 Assessment & Plan Chart Review Chart Review: Acceptable Risk for Surgery Consults Requested none ASA ASA2 Proposed Anesthesia Anesthesia Type: General History Surgery Operation Date: 06/21/24 14:50 Proposed Procedures p Endoscopic Retrograde Cholangiopancreatogram - Pete Powers MD Height/Weight Height: 5 ft 4 in Weight: 90.2 kg Allergies Allergy/AdvReac Type Severity Reaction Status Date / Time cat dander Allergy Intermediate Itchy/Watery Verified 06/11/24 13:44 Eyes, Congestion weed pollen Allergy Intermediate Itchy/Watery Verified 06/11/24 13:44 Eyes, Congestion No Known Drug Allergies Allergy Unknown Unknown Verified 06/11/24 13:44 Medications Home Medications Medication Instructions Recorded Confirmed Last Taken fexofenadine 180 mg tablet 180 mg PO QAM 02/18/22 06/20/24 05/26/24 (Angela Allergy) multivitamin 1 tab PO QAM 12/03/22 06/20/24 05/26/24 cholecalciferol (vitamin D3) 50 6,000 unit PO QAM 06/07/23 06/20/24 05/26/24 mcg (2,000 unit) capsule clobetasol 0.05 % scalp solution 1 applic topical DAILY PRN Rash 12/16/23 06/20/24 Unknown ketoconazole 2 % shampoo 1 applic topical .2 times per week 12/16/23 06/20/24 Unknown PRN Rash fluocinolone acetonide oil 0.01 % 1 drp otic (ear) DAILY PRN 12/20/23 06/20/24 Unknown ear drops Itchiness amlodipine 5 mg tablet 5 mg PO QAM 05/21/24 06/20/24 05/28/24 nystatin 100,000 unit/gram topical 1 applic topical BID PRN Rash 05/21/24 06/20/24 Unknown cream clotrimazole-betamethasone 1 1 applic topical BID 2 weeks #45 06/11/24 06/20/24 Unknown %-0.05 % topical cream grams fluticasone 250 mcg-salmeterol 50 1 inh inhalation BID #60 ea 06/11/24 06/20/24 Unknown mcg/dose blistr powdr for inhalation (Wixela Inhub) Active Medications Generic Name Dose Route Start Last Admin Trade Name Freq PRN Reason Stop Dose Admin Acetaminophen 650 mg 06/20/24 15:53 06/20/24 16:01 Acetaminophen 325 Mg Tab PO 07/20/24 15:52 650 mg Q6H PRN Administration Pain & Pre PT Amlodipine Besylate 5 mg 06/21/24 09:00 06/21/24 08:14 Amlodipine Besylate 5 Mg Tab PO 07/21/24 08:59 5 mg QAM PRAVIN Administration Betamethasone/Clotrimazole 1 appln 06/20/24 21:00 06/21/24 12:02 Clotrimazole/Betamethasone Cr 15 Gm Tube EXT 07/20/24 20:59 1 appln BID PRAVIN Administration Fexofenadine HCl 180 mg 06/21/24 09:00 06/21/24 08:14 Fexofenadine Hcl 180 Mg Tab PO 07/21/24 08:59 180 mg QAM PRAVIN Administration Fluticasone/Vilanterol 1 puffs 06/20/24 10:00 06/21/24 12:01 Fluticasone/Vilanterol 200/25mcg 14 Puffs/Inhaler INH 07/20/24 09:59 1 puffs DAILY PRAVIN Administration Piperacillin Sod/Tazobactam Sod 4.5 gm in 100 mls @ 25 mls/hr 06/20/24 06:00 06/21/24 13:48 Zosyn IV 06/24/24 05:59 25 mls/hr Q8H PRAVIN Administration Protocol Lactated Ringer's 1,000 mls @ 80 mls/hr 06/21/24 07:45 06/21/24 08:15 Lr IV 06/22/24 07:44 80 mls/hr .[id number] PRAVIN Administration Ondansetron HCl 4 mg 06/20/24 06:50 06/21/24 05:53 Ondansetron Inj 2 Mg/Ml 2 Ml Vial IV 07/20/24 06:49 4 mg Q6H PRN Administration Nausea And Vomiting NPO Date Last Intake of Fluids: 06/20/24 Date Last Intake of Solids: 06/19/24 Time Last Intake of Solids: 17:00 Last Intake of Solids Comment: Greater then 8 hrs Past Medical History Medical History Abnormal CT of the abdomen Encounter for pre-operative examination Hx of migraines History of cystocele pessary use History of COVID-19 11/2023 "just couldn't swallow" resolved- denies any issues since then Hypertension History of squamous cell carcinoma shave biopsy Asthma PONV (postoperative nausea and vomiting) Small bowel obstruction (04/29/24) [facility] IP - reason for procedure Exercise / Class Metabolic Activity II 4-5 Yardwork/Stairs/Walk up hill Past Family History Family History Father Myocardial infarction, Onset Age: 72 Coronary heart disease Diabetes Mother No problems noted. Denies family history of Ovarian cancer Prostate cancer Breast cancer Colorectal cancer Past Surgical History Surgical History Hx of colonoscopy History of bunionectomy Bilateral History of bladder surgery bladder tack - as per patient - now uses pessary H/O hysterectomy with unilateral oophorectomy still w/ L ovary; d/t DUB Hx of cholecystectomy Past Anesthesia History No Hx of Anesthesia Complications History of PONV History of PONV Social History Smoking Status: Never smoker Do You Dip or Chew Tobacco: No Hx Alcohol Use: No Hx Substance Use: No substance use type: does not use Review of Systems ROS Unobtainable: All systems reviewed & are unremarkable except as noted in HPI & below Physical Exam Vital Signs Last Vital Signs Temp 36.6 C 06/21/24 14:05 Pulse 71 06/21/24 14:05 Resp 16 06/21/24 14:05 BP 136/75 06/21/24 14:05 Pulse Ox 94 06/21/24 14:05 O2 Del Method Room Air 06/21/24 14:05 Constitutional no acute distress ENMT Mouth: no dentition abnormality Thyromental Distance: > or= 3.5 Finger Breadths Mallampati Class: II Neck normal visual inspection Respiratory normal respiratory effort Auscultation: lungs clear to auscultation bilaterally Cardiovascular Rate/Rhythm: regular rate and regular rhythm Neurologic moves all extremities Psychiatric Orientation: alert and oriented x 3 Testing Laboratory Results 06/21/24 05:49 06/21/24 05:49 PT 11.2 Seconds (9.0-12.0) 06/20/24 02:25 INR 1.0 (0.9-1.1) 06/20/24 02:25 Urine Color Yellow 06/20/24 01:07 Urine Appearance Turbid (Clear) A 06/20/24 01:07 Urine pH 7.0 (4.5-7.5) 06/20/24 01:07 Ur Specific [place] 1.020 (1.000-1.030) 06/20/24 01:07 Urine Protein Negative (Negative) 06/20/24 01:07 Urine Glucose (UA) Negative (Negative) 06/20/24 01:07 Urine Ketones 2+ (Negative) H 06/20/24 01:07 Urine Nitrite Negative (Negative) 06/20/24 01:07 Ur Leukocyte Esterase 3+ (Negative) H 06/20/24 01:07 Urine WBC (Auto) 21-50 /hpf (0-5) H 06/20/24 01:07 Urine RBC (Auto) 0-2 /hpf (0-2) 06/20/24 01:07 U Hyaline Cast (Auto) 0-2 /lpf (0-2) 06/20/24 01:07 U Epithel Cells (Auto) >20 /hpf (0-2) H 06/20/24 01:07 Urine Bacteria (Auto) 2+ (None Seen) H 06/20/24 01:07 06/20/24 01:07 Urine Culture - Final Urine,Clean Catch More than three types of organisms present, all high counts. Repeat collection recommended. No further identifications or sensitivities to follow.
[2024-06-21] MEDS: INDOMETHACIN 50 MG SUPP PR ONE (15:32)
[2024-06-21] MEDS ORDERED: DEXAMETHASONE SOD INJ 4 MG/ML VIAL ONE (15:44)
[2024-06-21] MEDS ORDERED: DROPERIDOL 5 MG/2 ML VIAL ONE (15:44)
[2024-06-21] MEDS ORDERED: SUGAMMADEX SODIUM 200 MG/2 ML VIAL IV ONE (15:58)
--- NOTE | 2024-06-21 16:14 | GI REPORT ---
[facility] Patient: FREDDY LAWSON : 1950 Sex at : Female Age: 74 Years Procedure: ERCP Date: 06/21/2024 Attending Physician: Pete Powers MD Referring MD: Referred Self Indications: - Bile duct stone(s) Medications: - General Anesthesia - Indomethacin 100 mg OH Complications: Procedure: - Prior to the procedure, a History and Physical was performed, and patient medications, allergies and sensitivities were reviewed. The patient's tolerance of previous anesthesia was reviewed. - Patient identification and proposed procedure were verified prior to the procedure by the physician. The procedure was verified in the procedure room. - The risks and benefits of the procedure and the sedation options and risks were discussed with the patient. All questions were answered and informed consent was obtained. - The ercp scope was introduced through the mouth and advanced to the duodenum and used to inject contrast into the bile duct. - The ERCP was accomplished without difficulty. - The patient tolerated the procedure well. Findings: - The fuel cell battery technician film was normal. - The bile duct was deeply cannulated with the short-nosed traction sphincterotome. Contrast was injected. I personally interpreted the bile duct images. Image quality was excellent. The middle third of the main bile duct contained filling defect(s) thought to be a stone. The upper third of the main bile duct was moderately dilated. The largest diameter was 12 mm. - After sphincterotomy the duct was swept with a 15 mm extraction balloon with successful extraction of a medium size irregularly shaped gallstone. Subsequent cholangiogram after extraction revealed no residual stones. - Cannulation of the pancreatic duct was not attempted. Impression: - After sphincterotomy the duct was swept with a 15 mm extraction balloon with successful extraction of a medium size irregularly shaped gallstone. Subsequent cholangiogram after extraction revealed no residual stones. - Cannulation of the pancreatic duct was not attempted. - A filling defect consistent with a stone was seen on the cholangiogram. - The upper third of the main bile duct was moderately dilated. - The examination was suspicious for choledocholithiasis. Removal was not attempted; no stent was inserted. Recommendation: - [facility] for [facility] care. Procedure Code(s): - 57385, Endoscopic retrograde cholangiopancreatography (ERCP); diagnostic, including collection of specimen(s) by brushing or washing, when performed (separate procedure) - 55780, Endoscopic catheterization of the biliary ductal system, radiological supervision and interpretation Diagnosis Code(s): - K80.50, Calculus of bile duct without cholangitis or cholecystitis without obstruction - R93.2, Abnormal findings on diagnostic imaging of liver and biliary tract - K83.8, Other specified diseases of biliary tract CPT(R) - 2022 copyright [employer]. All Rights Reserved. The CPT codes, CCI edits and ICD codes generated are intended as suggestions and were generated based on input data. These codes are preliminary and upon commercial loan analyst review may be revised to meet current compliance and payer requirements. The provider is responsible for the final determination of appropriate codes, and modifiers. Pete Powers MD This document has been electronically signed. Note Initiated:06/21/2024 Note Completed:06/21/2024 4:13 PM \\[email or web address]\Data\Provation\Results\[email or web address]\[id number]
[2024-06-21] MEDS: oxyCODONE HCL IR 5 MG TAB (IMMEDIATE RELEASE) PO PRN (18:22)
[2024-06-22 04:07] VITALS: O2SAT 93
[2024-06-22 06:47] LABS: Hematocrit (blood only) 39.8 % (37.0-47.0); Hemoglobin 13.1 g/dl (12.0-16.0); Mean Corpuscular Hemoglobin 27.3 pg (25.0-34.0); Mean Corpuscular Hgb Conc 32.9 g/dL (32.0-36.0); Mean Corpuscular Volume 83.1 fL (80.0-100.0); Mean Platelet Volume 10.6 fL (9.4-12.4); Platelet Count 366 K/uL (130-400); RDW Coefficient of Variation 14.9 % (11.5-14.5); RDW Standard Deviation 45.3 fL (36.4-46.3); Red Blood Count 4.79 M/uL (4.20-5.40); White Blood Count 5.73 K/ul (4.8-10.8)
[2024-06-22 07:31] VITALS: BP 120/70; PULSE 68; RESP 16; TEMP 97.7
[2024-06-22 07:42] LABS: Albumin Level 3.9 gm/dl (3.4-5.0); BUN Creatinine Ratio 20.3 (10-20); Bilirubin Direct 0.5 mg/dl (0-0.2); Bilirubin,Total 1.4 mg/dl (0.2-1.0); Calcium 9.5 mg/dl (8.6-10.3); Creatinine Clr Calc Pharmacy 74.7 ml/min; Magnesium 2.1 mg/dl (1.7-2.4); Potassium 4.2 mmol/L (3.5-5.1); Total Protein 6.7 gm/dl (6.0-8.3)
--- NOTE | 2024-06-22 08:01 | Fluoroscopy Report ---
[place] ERCP biliary ductal CLINICAL HISTORY: ERCP IN OR COMPARISON STUDY: None FLUOROSCOPY TIME: 4 minutes 3 seconds FLUOROSCOPY IMAGES: 10 EXPOSURE DOSE: 65 mGy FINDINGS: Fluoroscopy was provided for ERCP. There is dilatation of the common bile duct and there is intrahepatic biliary dilatation. IMPRESSION: Fluoroscopy for ERCP. ACT 112: Negative or not required by law. Electronically signed by: Memo Rock M.D. 06/22/2024 8:00 AM
--- NOTE | 2024-06-22 08:06 | Hospitalist Progress Note ---
Date of Service June 22, 2024 Assessment & Plan (1) Choledocholithiasis: (2) Asymptomatic bacteriuria: (3) Hypertension: (4) Asthma: Plan [place] is a 74F with a PMHx of asthma, HTN, SBO, Vit D deficiency, cystocele and cholecystectomy who present with abdominal pain and vomiting starting 3/4 Recent admission 04/29-04/30 for SBO, hx cholecystectomy in the past. Strong family hx Crohns in sister/daughter and imaging at that time w/ transition point distal ileum suggestion of possible IBD and underwent c-scope w/ Case (pathology not suggestive of crohn's at that time) Biofire negative, LFTs wnl however imaging w/ concerns choledocholithiasis and admitted for eval/GI consultation. WBC elevation on 16k #Choledocholithiasis CTAP concerning for CHOLEDOCHOLITHIASIS w/ moderate dilatation of CBD (20mm), fluid filled jejunal loops with possible ongoing enteritis MRCP showed choledocholithiasis with subsequent biliary obstruction GI consulted, ERCP planned s/p ERCP w/ Dr Powers 06/21. Indomethacin provided -- sphincterotomy of duct w/ removal of medium size irregularly shaped gallstone. Subsequent cholangiogram w/o residual stones. No stent placed Zosyn IV - can plan for course Augmentin at dc pending ERCP results/course x 10d WBC normalized, afebrile Diet advanced, full liquids this morning and adv as tolerated Pain control/antiemetics -- one dose oxycodone last evening LFT elevation today, ?2nd to procedure, ?2nd Zosyn use. Lipase wnl. IF feeling well/consider switching to Augmentin and repeat labs prior to dc vs w/ PCP in follow up #Asymptomatic bacteruria UA concerning for UTI, patient denies any urinary symptoms. Urine cx contaminant and as above covered w/ Zosyn abx HTN - continue amlodipine , suspect trace LE edema 2nd to use, no issues/monitor. SCDs ordered/consider chemoproph pending inpatient stay Asthma - continue inhalers , on RA/lung stable on exam DVT proph: SCDs for now, ambulation to be encouraged. Chemoproph can be added pending course, deferred for ERCP to prevent bleeding risk Dispo: ERCP for today -- notable patient is hopeful for dc 06/22 and reports she has a basketball game she would like to get to. If pain/nausea/labs and exam stable pending ERCP can consider dc on Augmentin to complete course with GI/PCP follow-up Updated daughter Cielo at bedside 06/21 ([employer] E[employer]MENT [employer] at [facility]) Admission and Anticipated Discharge Date Admission Date: June 20, 2024 Results & Data Results & Data Vital Signs (Past 12 Hours) Vital Signs Temp Pulse Resp BP Pulse Ox O2 Del Method 06/22/24 07:30 36.5 C 68 16 120/70 93 Room Air 06/22/24 04:07 36.4 C L 65 12 111/68 93 Room Air 06/22/24 00:31 36.9 C 68 20 119/74 92 Room Air PG Care Time/CCT Total # of Minutes Spent Total Time Spent with Patient: Total time spent is greater than 50% in coordination of care (as documented) at patient's floor/unit and/or counseling patient: Coding Diagnoses Choledocholithiasis K80.50 Asymptomatic bacteriuria R82.71 Hypertension I10 Asthma J45.909
[2024-06-22] MEDS: CHOLECALCIFEROL 25 MCG (1000 UNITS) TAB PO SCH (08:10)
[2024-06-22] MEDS: MULTIVITAMIN TAB PO SCH (08:10)
--- NOTE | 2024-06-22 08:31 | Discharge Summary ---
Discharge Summary Date of Service June 22, 2024 Principal Dx & Hospital Course #1 = Principal Diagnosis (1) Choledocholithiasis: (2) Asymptomatic bacteriuria: (3) Hypertension: (4) Asthma: Kelle Henriquez is a 74F with a PMHx of asthma, HTN, SBO, Vit D deficiency, cystocele and cholecystectomy who present with abdominal pain and vomiting starting 3/4 Recent admission 04/29-04/30 for SBO, hx cholecystectomy in the past. Strong famil y hx Crohns in sister/daughter and imaging at that time w/ transition point distal ileum suggestion of possible IBD and underwent c-scope w/ Case (pathology not suggestive of crohn's at that time) Biofire negative, LFTs wnl however imaging w/ concerns choledocholithiasis and admitted for eval/GI consultation. WBC elevation on 16k #Choledocholithiasis CTAP concerning for CHOLEDOCHOLITHIASIS w/ moderate dilatation of CBD (20mm), fluid filled jejunal loops with possible ongoing enteritis MRCP showed choledocholithiasis with subsequent biliary obstruction GI consulted s/p ERCP w/ Dr Powers 06/21--> performed sphincterotomy of duct w/ removal of medium size irregularly shaped gallstone. Subsequent cholangiogram w/o residual stones. No stent placed Indomethacin provided Was provided IV antibiotics in the form of Zosyn and IVF/pain control/antiemetics and WBC normalized and tolerated advancement of diet and +BM prior to discharge without continued pain. Did have elevation in LFTs prior to dc but lipase wnl and given no pain or issue ?to procedure vs Zosyn medication. No RUQ tenderness. Ok per GI given no pain/tolerating diet for discharge and can return if any issues. Discussed w/ patient about repeat LFTs this upcoming week to ensure resolved. Discussed monitoring for diarrhea on antibiotics. Discharged on Augmentin PO to complete 10 day course. #Asymptomatic bacteruria UA w/ bacteria but no sx and covered w/ abx above but cx without growth and no sx. HTN - BP stable, 120/70 prior to dc. Remained on amlodipine Asthma - continue inhalers , on RA/lung stable on exam Notes For Next Care Provider Recommend repeat LFTs in next week to ensure normalized (lipase wnl and no abd pain/n/v) Avoid NSAIDs x 1 wk Medication Changes From Visit Augmentin 1 tablet PO BID for total 10 day course (minus IV Zosyn inpatient) Tylenol prn (max dose discussed, she reports sparing use) Admission HPI Per Admitting Provider Florence is a 74F with a PMHx of asthma, HTN, SBO, Vit D deficiency, cystocele, and cholecystectomy who present with abdominal pain and vomiting starting the day prior. Recent admission 04/29-04/30 for SBO with concerns for chrons disease but outpatient colonoscopy just showed one polyp. Has not had problem with nausea, vomiting or abdominal pain since discharge in April until she presented to the ER. Had hamburger and baked beans for lunch. Denies fevers or chills at home. Reports vomiting ~ 12 times prior to coming in. Denies pain currently, has not vomited since arrival to ER. Pain is worse in the area where she had her gallbladder out, this was in ~. Denies any urinary symptoms. Bowels have been normal. Denies ETOH or smoking. ER course: Zosyn NSS 1L tylenol 1000mg IV CTX 2g Admission Exam Per Admitting Provider General: NAD, VS as above Resp: normal respiratory effort, lungs clear to auscultation CV: RRR, no murmur, Abd: normal bowel sounds, non tender, no hepatosplenomegaly, soft Extremities: Moves all extremities, trace nonpitting LE edema Neuro: A&O x3, Skin: intact, no lesions noted Discharge Exam General: 74yo female sitting up in bed, NAD HEENT: head atraumatic, normocephalic, mm improved Resp: normal respiratory effort, lungs clear to auscultation CV: RRR, no murmur, no significant pitting edema or calf tenderness GI: +BS, less distension (moved bowels this morning), SOFT, NONTENDER, no guarding/rebound or rigidity : no quintana MSK/Neuro: nonfocal, not confused, answering questions appropriately Psych: AOx3, cooperative with exam Discharge Plan Discharge Items Patient Disposition: Home - Self-Care Reason For Visit: CHILEDOCHOLITHIASIS Discharge Diagnosis: Choledocholithiasis Goals: You have been hospitalized for an urgent problem which required surgery. During your stay at [facility], we have made an effort to correct the problem that brought you to the hospital while keeping you as comfortable as possible. Surgery and medications were used to bring your condition under control and your discharge instructions will include directions for any medications you should take after leaving the hospital. Please make sure to follow the advice of your surgeon regarding follow up with the surgeon and with your primary care provider. Activity: Resume your previous activity Non-emergency contact: Primary Care Provider and Groundman/Lineman Call non-emergency contact if: you have any medication questions, your symptoms worsen, your pain is not controlled, your pain is concerning for you and you have a fever Follow-up/Referrals: Cristina Chilel, [Primary Care Provider] - 07/03/24 9:20 am Diet: Heart Healthy Addtl Attending Provider Instructions: You have been hosptialized for abdominal pain and vomiting. Imaging noted concerns for "choledocholithiasis" which is a condition where gallstones are present in the common bile duct and blocks the flow of bile and likely the cause of your symptoms. Gastroenterology was consulted, Dr Powers, and MRCP confirmed concerns for choledocholithiasis and you underwent a procedure called an ERCP for removal of a fairly large sized gallstone. They did NOT need to place a stent during ERCP. You were provided with IV fluids, antibiotics and bowel rest with pain control and your diet has been advanced and you are to continue a course of antibiotics for a total of TEN days at discharge. We are sending you on AUGMENTIN one tablet twice daily to complete the course. Please monitor for any increased diarrhea on antibiotics and alert your primary care provider if any diarrhea/increased BMs >8-9/day/foul smelling/etc . Antibiotics carry risk for cdiff but they are needed for your current condition. Please avoid NSAIDs (like ibuprofen/aleve/naproxen/motrin) for 7 days as ERCP can increase the risk for pancreatitis and NSAIDs can worsen this. You can take tylenol as needed for pain but as discussed do not take more than 3000mg in a 24hour period of time. You should have repeat liver enzyme testing with primary care next week. Please follow up with primary care in 7-10 days from discharge to monitor your progress after hospitalization and for coordination of your care. Please return to the ER with any fever/chills, increased abdominal pain/fever/nausea/vomiting, inability to keep up with oral hydration or for any other symptoms concerning for you. It has been a pleasure being a part of the medical team providing for you while you have been in the hospital. Take care! Pending Studies at Discharge: No Stand-Alone Forms: My [facility], Smoking Cessation Medications and DC Order Prescriptions: New amoxicillin-pot clavulanate 875-125 mg tablet 1 tab PO BID 8 Days Qty: 15 0RF acetaminophen 325 mg Tablet 650 mg PO Q6H PRN (Reason: fever or pain) Qty: 0 0RF Continued multivitamin Tablet 1 tab PO QAM Rx Instructions: with probiotic (Ollys brand) fexofenadine [Angela Allergy] 180 mg tablet 180 mg PO QAM cholecalciferol (vitamin D3) 50 mcg (2,000 unit) capsule 6,000 unit PO QAM clobetasol 0.05 % solution 1 applic topical DAILY PRN (Reason: Rash) ketoconazole 2 % shampoo 1 applic topical .2 times per week PRN (Reason: Rash) fluocinolone acetonide oil 0.01 % drops 1 drp otic (ear) DAILY PRN (Reason: Itchiness) fluticasone propion-salmeterol [Wixela Inhub] 250-50 mcg/dose blister with device 1 inh inhalation BID Qty: 60 5RF clotrimazole-betamethasone 1-0.05 % cream 1 applic topical BID 14 Days Qty: 45 0RF amlodipine 5 mg tablet 5 mg PO QAM nystatin 100,000 unit/gram cream 1 applic topical BID PRN (Reason: Rash) Discharge Orders: Discharge Order (Routine); Ordered 06/22/24 Ordered By: Nell Decker/Other Patient Handouts: DVT Post Op Prevention Admission Data Admit Date/Time: 06/20/24 09:21 Attending Provider: Luiz Santoro Admit Provider: Daryn Florez Primary Care Provider: Cristina Chilel Other Providers: Daryn Florez; Pete Powers I Other Interventions: Discharge Summary Assessment (RN) Last Done: 06/22/24 10:30 Hospital Stay Data Consultations 06/20/24 08:35 ED Decision to Admit Stat 06/20/24 09:15 Consult Gastroenterology Routine Procedures Performed Operation Date: 06/21/24 14:50 Actual Procedures p Endoscopic Retrograde Cholangiopancreatogram(Not Applicable) - Pete Powers MD Diagnostic Imagining Performed Abdomen/Pelvis CT 06/20/24 00:32 EXAM: CT abd pelvis IV con only CLINICAL HISTORY: mid abdominal pain; vomiting TECHNIQUE: CT of the abdomen and pelvis was performed, with the following protocol: axial images, and reconstructed coronal and sagittal images. Intravenous contrast was administered. 93 ML OPTIRAY 320 intravenous contrast was administered. One of the following dose reduction techniques was utilized for this exam: Automated exposure control, adjustment of the mA and/or kV according to patient size, and use of iterative reconstruction. DLP 1278.72 COMPARISON: 04/29/2024 FINDINGS: Sections of lower thorax show subpleural fibroatelectatic bands. Few subcentimetric left retrocrural nodes, largest measuring 6 mm in short axis diameter. Underlying metastasis needs to be excluded. Abdomen: Liver: Moderate dilatation of intrahepatic biliary radicals and common bile duct, proximal CBD measuring 20 mm in maximum caliber and showing abrupt change in luminal caliber in its distal portion. Liver is 17 cm in size. No focal lesions, cysts, or masses were identified. Gallbladder and Biliary System: The gallbladder is not visualized. Pancreas: Pancreatic head, body, and tail are visualized and appear normal in size and density. No pancreatic masses or calcifications were noted. Spleen: Normal in size, shape, and density. No splenic lesions or masses were identified. Kidneys and Adrenal Glands: Both kidneys are normal in size, shape, and position. No renal calculi or hydronephrosis. Small left renal cortical cysts. Left adrenal gland appears bulky with slightly nodular contour. Pelvis: Urinary Bladder: Normal in contour and wall thickness. Post hysterectomy status. No adnexal lesions. Vaginal pessary noted. Peritoneal and Retroperitoneal Structures: No free fluid or abnormal fluid collections were identified within the abdomen or pelvis. The abdominal aorta shows atherosclerotic changes with calcified plaques. Few subcentimetric left retrocrural nodes. Bowel: Uncomplicated colonic diverticulosis noted. Few fluid-filled prominent jejunal bowel loops on left side of abdomen, with maximum caliber of 24 mm. Possible ongoing enteritis. The visualized bowel loops are normal in caliber and appearance. The appendix is not well delineated. Bones and Soft Tissues: Degenerative changes in lumbar spine. Grade I anterolisthesis of L4 over L5 IMPRESSION: 1. Moderate dilatation of intrahepatic biliary radicals and common bile duct, proximal CBD measuring 20 mm in maximum caliber and showing abrupt change in luminal caliber in its distal portion. Further evaluation with MRCP if clinically warranted (stable). 2. Few fluid filled prominent jejunal bowel loops on left side of abdomen, with maximum caliber of 24 mm. Possible ongoing enteritis (less appreciated in this study compared to earlier one) 3. Uncomplicated colonic diverticulosis (stable). 4. Rest of the findings as detailed above Electronically signed by Johny Solis 06-20-2024 02:31 AM Cholangiopancreatography MRI 06/20/24 02:35 EXAM: MR MRCP CLINICAL HISTORY: dilatation of CBD. TECHNIQUE: Multiplanar multisequence magnetic resonance imaging of the abdomen without intravenous contrast. COMPARISON: CT abd pelvis 06/20/2024 was reviewed. FINDINGS: Liver: Normal size and morphology. Homogeneous signal intensity on T2-weighted images. No focal hepatic lesions. Gallbladder: Is not visualized. Bile Ducts: Moderate dilatation of intrahepatic biliary radicals with no internal filling defects or stones. Common bile duct, proximal CBD measuring 13 mm in maximum caliber and showing distal 3 filling defects ( 6 mm and 4.5 mm, 3 mm causing narrowing of the lumen ), the distal lumen of CBD is normal in caliber with no gross stricture, mural thickening or related masses. Pancreas: Normal size and contour. Homogeneous signal intensity on T2-weighted images. No masses or cystic lesions. Pancreatic Duct: Pancreatic duct is normal in caliber. No evidence of ductal dilatation or filling defects. Spleen: Normal size and appearance. Homogeneous signal intensity. Kidneys: Normal size, shape, and position of both kidneys. Homogeneous signal intensity on T2-weighted images. No renal stones, masses, or hydronephrosis. Small left renal cyst 9 mm. Adrenal Glands: Normal size and morphology bilaterally. No adrenal masses. Surrounding Structures: No evidence of free fluid or abnormal fluid collections in the abdomen. Normal appearance of the visualized bowel loops. Tiny reactive looking para-aortic and nia hepatis lymph nodes. A small rolling hiatus hernia. Right lower lobar atelectatic bands. IMPRESSION: 1. Choledocholithiasis with subsequent biliary obstruction, as described. 2. Further clinical and lab evaluation are advised. Electronically signed by Johny Solis 06-20-2024 05:30 AM Endo Retro Cholangiopancreatogram 06/21/24 14:50 [place] ERCP biliary ductal CLINICAL HISTORY: ERCP IN OR COMPARISON STUDY: None FLUOROSCOPY TIME: 4 minutes 3 seconds FLUOROSCOPY IMAGES: 10 EXPOSURE DOSE: 65 mGy FINDINGS: Fluoroscopy was provided for ERCP. There is dilatation of the common bile duct and there is intrahepatic biliary dilatation. IMPRESSION: Fluoroscopy for ERCP. ACT 112: Negative or not required by law. Electronically signed by: Memo Rock M.D. 06/22/2024 8:00 AM Discharge Instructions Given to Patient (Per Discharging Provider) You have been hosptialized for abdominal pain and vomiting. Imaging noted concerns for "choledocholithiasis" which is a condition where gallstones are present in the common bile duct and blocks the flow of bile and likely the cause of your symptoms. Gastroenterology was consulted, Dr Powers, and MRCP confirmed concerns for choledocholithiasis and you underwent a procedure called an ERCP for removal of a fairly large sized gallstone. They did NOT need to place a stent during ERCP. You were provided with IV fluids, antibiotics and bowel rest with pain control and your diet has been advanced and you are to continue a course of antibiotics for a total of TEN days at discharge. We are sending you on AUGMENTIN one tablet twice daily to complete the course. Please monitor for any increased diarrhea on antibiotics and alert your primary care provider if any diarrhea/increased BMs >8-9/day/foul smelling/etc . Antibiotics carry risk for cdiff but they are needed for your current condition. Please avoid NSAIDs (like ibuprofen/aleve/naproxen/motrin) for 7 days as ERCP can increase the risk for pancreatitis and NSAIDs can worsen this. You can take tylenol as needed for pain but as discussed do not take more than 3000mg in a 24hour period of time. You should have repeat liver enzyme testing with primary care next week. Please follow up with primary care in 7-10 days from discharge to monitor your progress after hospitalization and for coordination of your care. Please return to the ER with any fever/chills, increased abdominal pain/fever/nausea/vomiting, inability to keep up with oral hydration or for any other symptoms concerning for you. It has been a pleasure being a part of the medical team providing for you while you have been in the hospital. Take care! Supervising Physician Co-Signing Physician Notes The patient was not seen by me. The chart was reviewed. Case discussed with BELKIS Rahman. Agree with assessment and plan Total Time Total Time Spent Total Time Spent (In Minutes): 45 Coding Level of Care Code 51464 INP/OBS DISCH >30 MIN Diagnoses Choledocholithiasis K80.50 Asymptomatic bacteriuria R82.71 Hypertension I10 Asthma J45.909
--- NOTE | 2024-06-22 09:25 | Gastroenterology Progress Note ---
Date of Service June 22, 2024 Assessment & Plan (1) Choledocholithiasis: Plan: 74 year old female with history of asthma, HTN, SBO, Vit D deficiency, cystocele and cholecystectomy admitted through the ED w/ abd pain, nausea/vomiting - imaging concerning for biliary dilation w/ obstructive CBD stone. S/P ERCP w/ sphincterotomy, sweeping of the duct was w/ extraction of a medium size irregularly shaped gallstone. Subsequent cholangiogram after extraction revealed no residual stones. She has had a bump in transaminases this AM but denies pain, nausea/vomiting. Likely transient as she is asymptomatic. She desires to go home as she is painfree and tolerating oral intake. Recommend LFTs Tuesday and PCP follow up. Educated on alarm symptoms that would warrant ED evaluation. She verbalized understanding. Recall GI as needed. Thank you for allowing us to participate in the care of this patient. Please call with any acute changes, questions or concerns. Please see addendum below with additional recommendation from my supervising physician. I spent a total of 40 minutes on the date of service in review of patient's record, and previously obtained information in person and appropriate medical visit, discussion and education of plan, with patient and/or caregiver, placing orders for tests/referral/procedures as medically necessary and documentation of pertinent clinical information in patient's medical records for their visit today. Admission and Anticipated Discharge Date Admission Date: June 20, 2024 Supervising Physician Co-Signing Physician Notes I saw and examined this patient with our nurse practitioner and agree with her assessment and plan. Feels well post ERCP denies any abdominal pain nausea or vomiting. Transient elevation of liver enzymes most likely secondary to balloon extraction of stones. Can Repeat liver enzymes next week as an outpatient. Subjective Feeling well. Tolerating regular diet. S/P ERCP w/ sphincterotomy, sweeping of the duct was w/ extraction of a medium size irregularly shaped gallstone. Subsequent cholangiogram after extraction revealed no residual stones. She has had a bump in transaminases this AM but denies pain, nausea/vomiting. Review of Systems Review of Systems: All other findings negative except as noted in HPI. Physical Exam Constitutional: WD/WN, vitals as above Gastrointestinal (Abdomen): normal bowel sounds, soft, nontender, no hepatosplenomegaly Results & Data Results & Data Vital Signs (Past 12 Hours) Vital Signs Temp Pulse Resp BP Pulse Ox O2 Del Method 06/22/24 07:30 97.7 F 68 16 120/70 93 Room Air 06/22/24 04:07 97.5 F L 65 12 111/68 93 Room Air 06/22/24 00:31 98.4 F 68 20 119/74 92 Room Air Laboratory Results 06/22/24 Range/Units 06:13 WBC 5.73 (4.8-10.8) K/ul RBC 4.79 (4.20-5.40) M/uL Hgb 13.1 (12.0-16.0) g/dl Hct 39.8 (37.0-47.0) % MCV 83.1 (80.0-100.0) fL MCH 27.3 (25.0-34.0) pg MCHC 32.9 (32.0-36.0) g/dL RDW Std Deviation 45.3 (36.4-46.3) fL RDW Coeff of Lorene 14.9 H (11.5-14.5) % Plt Count 366 (130-400) K/uL MPV 10.6 (9.4-12.4) fL Sodium 139 (136-145) mmol/L Potassium 4.2 (3.5-5.1) mmol/L Chloride 102 (98-107) mmol/L Carbon Dioxide 32 (21-32) mmol/L Anion Gap 5 (3-11) BUN 15 (6-23) mg/dl Creatinine 0.74 (0.6-1.2) mg/dl Est Cr Clr Drug Dosing 74.7 ml/min eGFR 85.91 BUN/Creatinine Ratio 20.3 H (10-20) Glucose 114 H (70-99(Fasting)) mg/dl Calcium 9.5 (8.6-10.3) mg/dl Magnesium 2.1 (1.7-2.4) mg/dl Total Bilirubin 1.4 H D (0.2-1.0) mg/dl Direct Bilirubin 0.5 H (0-0.2) mg/dl AST 575 H (13-39) U/L ALT 391 H (7-52) U/L Alkaline Phosphatase 215 H D (34-104) U/L Total Protein 6.7 (6.0-8.3) gm/dl Albumin 3.9 (3.4-5.0) gm/dl Lipase 15 (11-82) U/L 25-OH Vitamin D Total 61.8 (30-100) ng/ml PG Care Time/CCT Total # of Minutes Spent Total Time Spent with Patient: Total time spent is greater than 50% in coordination of care (as documented) at patient's floor/unit and/or counseling patient: Coding Level of Care Code 96339 SUB INP/OBS CARE MIN Diagnoses Choledocholithiasis K80.50
[2024-06-22] MEDS: AMOXICILLIN/CLAVULANATE 875 MG TAB PO SCH (09:43)
== END 2024-06-22 11:28 | disposition home or self-care (01) ==
LOC: EDINP 00:10 → ED 00:10 → SUATTDRO 09:21 → 3N 09:55